=== PATIENT | female | born 1960 | race Caucasian/White ===

== ENCOUNTER 2019-04-03 16:00 | Inpatient (IN) | payer MEDICARE ==
[~2019-04-03] VITALS: Ht 157.5 cm; Wt 41.3 kg
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
--- NOTE | 2019-04-03 17:13 | RAD ---
PORTABLE CHEST 1V History: Altered mental status. Comparison: None. Findings: No consolidation or pleural effusion. Normal heart size. Right medial basilar calcified granuloma. Calcified right hilar lymph nodes. Impression: 1. No acute cardiopulmonary process. 2. Prior granulomatous disease. Electronically signed by: Brandon Figueroa DO (04/03/2019 5:11 PM) [id number]
[2019-04-03 17:20] LABS: BILIRUBIN,URINE NEG (NEG); CLARITY,URINE CLEAR; COLOR,URINE STRAW; GLUCOSE,URINE 100 mg/dL (NEG)
[2019-04-03 17:21] LABS: NITRITE,URINE NEG (NEG); UROBILINOGEN,URINE 0.2 mg/dL (0.2 mg/dL)
[2019-04-03 17:27] LABS: BACTERIA,URINE FEW /HPF (0-FEW); BARBITURATES NEG (NEG); BENZODIAZEPINES NEG (NEG); CANNABINOIDS NEG (NEG); COCAINE POS (NEG); METHADONE NEG (NEG); OPIATES NEG (NEG); PHENCYCLIDINE NEG (NEG); RBC,URINE RARE /HPF (0-2); SQUAMOUS EPITHELIAL CELL,UR FEW /LPF; WBC,URINE OCC /HPF (0-4)
[2019-04-03 17:29] LABS: AMPHETAMINE/METHAMPHETAMINE NEG (NEG)
[2019-04-03 17:31] LABS: BASO % 0 % (0-3); EOS # 0.1 x10^3/uL (0.0-0.7); EOS % 1 % (0-3); HEMATOCRIT 51.7 % (36.0-47.0); HEMOGLOBIN 17.3 g/dL (12.0-15.5); LYMPH # 1.9 x10^3/uL (1.0-4.8); LYMPH % 23 % (24-48); MEAN CORPUSCULAR HEMOGLOBIN 32 pg (25-35); MEAN CORPUSCULAR HGB CONC 34 g/dL (31-37); MEAN CORPUSCULAR VOLUME 96 fL (79-100); MONO # 0.7 x10^3/uL (0.0-1.1); MONO % 8 % (0-9); NEUT # 5.5 x10^3uL (1.8-7.7); NEUT % 68 % (31-73); PLATELET COUNT 220 x10^3/uL (140-400); RED BLOOD COUNT 5.38 x10^6/uL (3.50-5.40); RED CELL DISTRIBUTION WIDTH 14.8 % (11.5-14.5); WHITE BLOOD COUNT 8.2 x10^3/uL (4.0-11.0)
--- NOTE | 2019-04-03 18:06 | RAD ---
Exam: CT head INDICATION: Altered mental status TECHNIQUE: Sequential axial images through the head were obtained without the administration of IV contrast. Comparisons: None FINDINGS: No focal parenchymal lesion or hemorrhage is identified. There is no midline shift or sulcal effacement. No acute vascular territory infarction is identified. Paalcio-white distinction is preserved. The ventricular system is within normal limits without compression hydrocephalus. The basal cisterns are well maintained. The visualized portions of the paranasal sinuses and mastoid air cells are well-pneumatized. No acute fractures. IMPRESSION: No acute intracranial abnormality. Exposure: One or more of the following in the visualized dose reduction techniques were utilized for this examination: 1. Automated exposure control 2. Adjustment of the MA and/or KV according to patient size Use of iterative of reconstructive technique Electronically signed by: Emmett Esqueda MD (04/03/2019 6:03 PM) [facility]
--- NOTE | 2019-04-03 18:25 | EKG ---
[address] [address] Test Date: 2019-04-03 Test Time: 16:46:49 Pat Name: CINDA WALDEN Department: Room: Gender: F Banquet Lead: : 1960 Requested By: KHALIDA CEVALLOS Order Number: [id number] Reading MD: Flaquito Torres Measurements Intervals [place] Rate: 80 P: 90 DC: 128 QRS: 79 QRSD: 84 T: 63 QT: 400 QTc: 465 Interpretive Statements SINUS RHYTHM NONSPECIFIC ST-T WAVE CHANGES. Electronically Signed On 04-06-2019 10:14:09 CDT by Flaquito Torres
[2019-04-03 18:47] LABS: ALBUMIN 3.8 g/dL (3.4-5.0); ALBUMIN/GLOBULIN RATIO 0.9 (1.0-1.7); CALCIUM 9.3 mg/dL (8.5-10.1); CREATININE 0.9 mg/dL (0.6-1.0); GFR 64.3; MAGNESIUM 2.3 mg/dL (1.8-2.4); TOTAL BILIRUBIN 0.4 mg/dL (0.2-1.0); TOTAL PROTEIN 7.9 g/dL (6.4-8.2)
[2019-04-03] MEDS ORDERED: POTASSIUM CHLORIDE 20 MEQ TABLET.ER. PO ONE (19:00)
[2019-04-03] MEDS ORDERED: NICOTINE 21MG PATCH. TD ONE ×2 (19:52→20:30)
[2019-04-03 20:30] VITALS: BP 190/85
[2019-04-03] MEDS ORDERED: ONDANSETRON PF 4 MG/2 ML VIAL. IV PRN (21:15)
[2019-04-03] MEDS: HALOPERIDOL LACT 5 MG/ML VIAL. IM PRN (21:43)
[2019-04-03 23:40] VITALS: BP 145/74
[2019-04-04 06:36] VITALS: BP 136/75
[2019-04-04 08:03] LABS: HEMATOCRIT 49.4 % (36.0-47.0); HEMOGLOBIN 16.5 g/dL (12.0-15.5); RED BLOOD COUNT 5.15 x10^6/uL (3.50-5.40); WHITE BLOOD COUNT 6.5 x10^3/uL (4.0-11.0)
[2019-04-04 08:11] LABS: CALCIUM 8.9 mg/dL (8.5-10.1); CREATININE 0.8 mg/dL (0.6-1.0); GFR 73.7; POTASSIUM 4.3 mmol/L (3.5-5.1)
[2019-04-04 11:08] VITALS: BP 144/80
[2019-04-04] MEDS: HALOPERIDOL LACT 5 MG/ML VIAL. IM PRN (11:09)
[2019-04-04 15:03] VITALS: BP 170/82
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
[2019-04-04 19:41] VITALS: BP 154/71
[2019-04-04 23:18] VITALS: BP 128/71
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
[2019-04-05 05:06] VITALS: BP 133/78
[2019-04-05] MEDS: HALOPERIDOL LACT 5 MG/ML VIAL. IM PRN (09:04)
[2019-04-05 11:00] VITALS: BP 171/81
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
== END 2019-04-05 16:51 | disposition home or self-care (01) | DRG 641 ==
LOC: ER 16:00 → EEVIPCON 16:00 → 1 SOUTH 18:50
PROVIDERS: ADMIT Internal Medicine; ATTEND Internal Medicine
DX: E87.6 Hypokalemia (principal); F14.10 Cocaine abuse, uncomplicated; F03.90 Unspecified dementia, unspecified severity, without behavioral disturbance, psychotic disturbance, mood disturbance, and anxiety; D64.9 Anemia, unspecified; Z87.891 Personal history of nicotine dependence; Z79.899 Other long term (current) drug therapy
CPT/HCPCS: 36415; 70450; 71045; 80048; 80053; 80307; 81001; 83735; 85025; 85027; 93005; J1630; 99285-25

== ENCOUNTER 2019-10-08 13:43 | Inpatient (IN) | payer MEDICARE ==
[~2019-10-08] VITALS: Ht 157.5 cm; Wt 62.6 kg
[2019-10-08 14:29] LABS: BASO # 0.1 x10^3/uL (0.0-0.2); BASO % 1 % (0-3); EOS # 0.1 x10^3/uL (0.0-0.7); EOS % 1 % (0-3); HEMOGLOBIN 15.7 g/dL (12.0-15.5); LYMPH # 2.9 x10^3/uL (1.0-4.8); LYMPH % 40 % (24-48); MEAN CORPUSCULAR HEMOGLOBIN 31 pg (25-35); MEAN CORPUSCULAR HGB CONC 33 g/dL (31-37); MEAN CORPUSCULAR VOLUME 94 fL (79-100); MONO # 0.7 x10^3/uL (0.0-1.1); MONO % 10 % (0-9); NEUT # 3.6 x10^3uL (1.8-7.7); NEUT % 49 % (31-73); PLATELET COUNT 338 x10^3/uL (140-400); RED BLOOD COUNT 5.11 x10^6/uL (3.50-5.40); RED CELL DISTRIBUTION WIDTH 14.2 % (11.5-14.5); WHITE BLOOD COUNT 7.4 x10^3/uL (4.0-11.0)
[2019-10-08 14:34] LABS: CALCIUM 9.5 mg/dL (8.5-10.1); CREATININE 0.9 mg/dL (0.6-1.0); GFR 64.3; POTASSIUM 4.1 mmol/L (3.5-5.1)
[2019-10-08 14:42] LABS: ALBUMIN 3.8 g/dL (3.4-5.0); ALBUMIN/GLOBULIN RATIO 0.9 (1.0-1.7); MAGNESIUM 2.2 mg/dL (1.8-2.4); TOTAL BILIRUBIN 0.3 mg/dL (0.2-1.0)
--- NOTE | 2019-10-08 14:51 | PHYS DOC ---
Past History Past Medical History: Dementia Past Surgical History: Other Smoking: Cigarettes Alcohol Use: Rarely Adult General Chief Complaint Chief Complaint: PSYCH EVALUATION HPI HPI Patient is a 59-year-old female who presents for medical [facility]. Patient reportedly has behavioral disturbance. Patient not willing to answer any questions the emergency room. She is refusing entire examination.[] Review of Systems Review of Systems Constitutional: No reported fever or chills [] Respiratory: No reported shortness of breath [] Cardiovascular: No additional information not addressed in HPI [] GI: No reported vomiting or diarrhea [] Neurologic: No reported headache, focal weakness or sensory changes [] Unable to fully assess review of systems as patient is refusing to answer any questions. Allergies Allergies Allergies Coded Allergies Type Severity Reaction Last Updated Verified No Known Drug Allergies 04/03/19 No Physical Exam Physical Exam Constitutional: Well developed, well nourished, no acute distress, non-toxic appearance. [] HENT: Normocephalic, atraumatic. [] Lungs & Thorax: No respiratory distress apparent[] Neurologic: Awake and alert with no obvious no focal deficits noted. [] Psychologic: Patient agitated and hostile towards staff. [] Unable to complete physical examination as patient is unwilling to allow physician exam. Current Patient Data Vital Signs Vital Signs Date Time Temp Pulse Resp B/P (MAP) Pulse Ox O2 Delivery O2 Flow Rate FiO2 10/08/19 14:05 66 22 149/114 (126) 94 Lab Results Laboratory Tests Test 10/08/19 14:02 White Blood Count 7.4 x10^3/uL (4.0-11.0) Red Blood Count 5.11 x10^6/uL (3.50-5.40) Hemoglobin 15.7 g/dL (12.0-15.5) H Hematocrit 48.0 % (36.0-47.0) H Mean Corpuscular Volume 94 fL (79-100) Mean Corpuscular Hemoglobin 31 pg (25-35) Mean Corpuscular Hemoglobin Concent 33 g/dL (31-37) Red Cell Distribution Width 14.2 % (11.5-14.5) Platelet Count 338 x10^3/uL (140-400) Neutrophils (%) (Auto) 49 % (31-73) Lymphocytes (%) (Auto) 40 % (24-48) Monocytes (%) (Auto) 10 % (0-9) H Eosinophils (%) (Auto) 1 % (0-3) Basophils (%) (Auto) 1 % (0-3) Neutrophils # (Auto) 3.6 x10^3uL (1.8-7.7) Lymphocytes # (Auto) 2.9 x10^3/uL (1.0-4.8) Monocytes # (Auto) 0.7 x10^3/uL (0.0-1.1) Eosinophils # (Auto) 0.1 x10^3/uL (0.0-0.7) Basophils # (Auto) 0.1 x10^3/uL (0.0-0.2) Sodium Level 147 mmol/L (136-145) H Potassium Level 4.1 mmol/L (3.5-5.1) Chloride Level 108 mmol/L (98-107) H Carbon Dioxide Level 23 mmol/L (21-32) Anion Gap 16 (6-14) H Blood Urea Nitrogen 12 mg/dL (7-20) Creatinine 0.9 mg/dL (0.6-1.0) Estimated GFR (Cockcroft-Gault) 64.3 BUN/Creatinine Ratio 13 (6-20) Glucose Level 111 mg/dL (70-99) H Calcium Level 9.5 mg/dL (8.5-10.1) Magnesium Level 2.2 mg/dL (1.8-2.4) Total Bilirubin 0.3 mg/dL (0.2-1.0) Aspartate Amino Transferase (AST) 16 U/L (15-37) Alanine Aminotransferase (ALT) 20 U/L (14-59) Alkaline Phosphatase 95 U/L (46-116) Total Protein 8.0 g/dL (6.4-8.2) Albumin 3.8 g/dL (3.4-5.0) Albumin/Globulin Ratio 0.9 (1.0-1.7) L Ethyl Alcohol Level < 10 mg/dL (0-10) EKG EKG [] Radiology/Procedures Radiology/Procedures [] Course & Med Decision Making Course & Med Decision Making Pertinent Labs and Imaging studies reviewed. (See chart for details) [] Dragon Disclaimer Dragon Disclaimer This electronic medical record was generated, in whole or in part, using a voice recognition dictation system. Departure Departure: Impression: Primary Impression: Behavior disturbance Disposition: ADMITTED INPATIENT Admitting Physician: Other (Dr. Flores) Condition: STABLE Referrals: FARA FINK MD (PCP) Scripts No Active Prescriptions or Reported Meds LEANDRA SWARTZ Jr. DO Oct 08, 2019 14:51
[2019-10-08] MEDS ORDERED: CALC500T31 PO (15:29)
[2019-10-08] MEDS ORDERED: THIA100T22 PO (15:29)
[2019-10-08] MEDS ORDERED: NICO2GUM BC (15:29)
[2019-10-08] MEDS ORDERED: QUET25TA5 PO ×2 (15:29)
[2019-10-08] MEDS ORDERED: ACET325T21 PO (15:29)
[2019-10-08] MEDS ORDERED: FOLI20CA PO (15:29)
[2019-10-08] MEDS ORDERED: AMLO5TAB10 PO (15:29)
[2019-10-08] MEDS ORDERED: DIVA500T17 PO (15:29)
[2019-10-08] MEDS ORDERED: MELA3TAB43 PO (15:29)
[2019-10-08] MEDS ORDERED: MULT-503 PO (15:29)
[2019-10-08] MEDS ORDERED: POLY2500 PO (15:29)
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
[2019-10-08] MEDS ORDERED: MAGNESIUM HYDROXIDE 2,400 MG/30 ML ORAL.SUSP. PO PRN (17:30)
[2019-10-08] MEDS ORDERED: METHYL SALICYLATE/MENTHOL TOPICAL OINTMENT 57GM TUBE. TP PRN (17:30)
[2019-10-08] MEDS ORDERED: ACETAMINOPHEN 325 MG TABLET PO PRN ×2 (17:30→19:30)
[2019-10-08] MEDS ORDERED: MAG HYDROX/AL HYDROX/SIMETH 30 ML ORAL.SUSP PO PRN (17:30)
[2019-10-08 17:57] VITALS: BP 121/83
[2019-10-08 18:21] LABS: VAL ACID 70 mcg/mL (50-100)
[2019-10-08] MEDS ORDERED: CALCIUM CARBONATE 500 MG TABLET PO PRN (19:30)
[2019-10-08] MEDS ORDERED: NICOTINE POLACRILEX GUM 2 MG GUM. BC PRN (19:30)
[2019-10-08] MEDS: MELATONIN 3 MG TABLET PO SCH (20:02)
[2019-10-08] MEDS: QUEtiapine 25 MG TABLET. PO SCH (20:02)
[2019-10-08] MEDS: DIVALPROEX SODIUM 250 MG TABLET.DR. PO SCH (20:03)
--- NOTE | 2019-10-08 21:19 | NUR ---
Pt walking in hallway at shift change. Pt exit seeking, confused, and disorganized. Pt states "I'm leaving. I'm not staying here. That's my stuff and they're not going to take it." Pt cooperative with assessment this evening although has refused skin assessment thus far and pt was compliant with HS medications administered whole. Pt currently walking in day room, stating that she is leaving and she is not staying here tonight.
--- NOTE | 2019-10-08 21:28 | PDOC ---
Exam Note: Saeed Note: Please also refer to the separate dictated note~for this date of service dictated separately. Discussed the patient with Nursing staff reviewed the chart.~Reviewed interim history and current functioning. Reviewed vital signs,~Labs/ Radiology~and current medications noted below. Continue current treatment with the changes noted in the dictated addendum note Assessment: Vital Signs/I&O: Vital Signs Date Time Temp Pulse Resp B/P (MAP) Pulse Ox O2 Delivery O2 Flow Rate FiO2 10/08/19 17:57 98.3 91 20 121/83 (96) 97 Room Air Labs: Laboratory Tests Test 10/08/19 14:02 White Blood Count 7.4 x10^3/uL (4.0-11.0) Red Blood Count 5.11 x10^6/uL (3.50-5.40) Hemoglobin 15.7 g/dL (12.0-15.5) H Hematocrit 48.0 % (36.0-47.0) H Mean Corpuscular Volume 94 fL (79-100) Mean Corpuscular Hemoglobin 31 pg (25-35) Mean Corpuscular Hemoglobin Concent 33 g/dL (31-37) Red Cell Distribution Width 14.2 % (11.5-14.5) Platelet Count 338 x10^3/uL (140-400) Neutrophils (%) (Auto) 49 % (31-73) Lymphocytes (%) (Auto) 40 % (24-48) Monocytes (%) (Auto) 10 % (0-9) H Eosinophils (%) (Auto) 1 % (0-3) Basophils (%) (Auto) 1 % (0-3) Neutrophils # (Auto) 3.6 x10^3uL (1.8-7.7) Lymphocytes # (Auto) 2.9 x10^3/uL (1.0-4.8) Monocytes # (Auto) 0.7 x10^3/uL (0.0-1.1) Eosinophils # (Auto) 0.1 x10^3/uL (0.0-0.7) Basophils # (Auto) 0.1 x10^3/uL (0.0-0.2) Sodium Level 147 mmol/L (136-145) H Potassium Level 4.1 mmol/L (3.5-5.1) Chloride Level 108 mmol/L (98-107) H Carbon Dioxide Level 23 mmol/L (21-32) Anion Gap 16 (6-14) H Blood Urea Nitrogen 12 mg/dL (7-20) Creatinine 0.9 mg/dL (0.6-1.0) Estimated GFR (Cockcroft-Gault) 64.3 BUN/Creatinine Ratio 13 (6-20) Glucose Level 111 mg/dL (70-99) H Calcium Level 9.5 mg/dL (8.5-10.1) Magnesium Level 2.2 mg/dL (1.8-2.4) Total Bilirubin 0.3 mg/dL (0.2-1.0) Aspartate Amino Transferase (AST) 16 U/L (15-37) Alanine Aminotransferase (ALT) 20 U/L (14-59) Alkaline Phosphatase 95 U/L (46-116) Total Protein 8.0 g/dL (6.4-8.2) Albumin 3.8 g/dL (3.4-5.0) Albumin/Globulin Ratio 0.9 (1.0-1.7) L Valproic Acid Level 70 mcg/mL (50-100) Valproic Acid Last Dose Date 10/07/19 Valproic Acid Last Dose Time 2100 Ethyl Alcohol Level < 10 mg/dL (0-10) Current Medications: Meds: Current Medications Medications (Trade) Dose Ordered Sig/Tati Route PRN Reason Start Time Stop Time Status Last Admin Dose Admin Divalproex Sodium (Depakote) 250 mg TID PO 10/08/19 21:00 10/08/19 20:03 Quetiapine Fumarate (SEROquel) 75 mg QHS PO 10/08/19 21:00 10/08/19 20:02 Melatonin (Melatonin) 3 mg QHS PO 10/08/19 21:00 10/08/19 20:02 I have reviewed the current psychotropics carefully including drug interactions. Risk benefit ratio favors no change other than as noted in my dictated progress note. Diagnosis: Problems: (1) Cocaine abuse ASHLIE CINTRON MD Oct 08, 2019 21:27
--- NOTE | 2019-10-08 22:09 | NUR ---
Pt agitated, exit seeking, door checking and swearing at staff. Attempts at re-direction by staff unsuccessful. PRN Zydis administered hidden in apple juice at this time.
[2019-10-08 23:07] LABS: THYROXINE 5.9 ug/dL (4.5-12.0)
[2019-10-08 23:13] LABS: BARBITURATES NEG (NEG); BENZODIAZEPINES NEG (NEG); CANNABINOIDS NEG (NEG); COCAINE NEG (NEG); METHADONE NEG (NEG); OPIATES NEG (NEG); PHENCYCLIDINE NEG (NEG)
[2019-10-08 23:14] LABS: AMPHETAMINE/METHAMPHETAMINE NEG (NEG)
[2019-10-08 23:58] LABS: BACTERIA,URINE 0 /HPF (0-FEW); BILIRUBIN,URINE NEG (NEG); CLARITY,URINE CLEAR; COLOR,URINE YELLOW; GLUCOSE,URINE NEG (NEG); NITRITE,URINE NEG (NEG); RBC,URINE 0 /HPF (0-2); SQUAMOUS EPITHELIAL CELL,UR OCC /LPF; UROBILINOGEN,URINE 0.2 mg/dL (0.2 mg/dL); WBC,URINE OCC /HPF (0-4)
[2019-10-09 00:06] LABS: HEMOGLOBIN A1C 5.3 % (4.8-5.6)
--- NOTE | 2019-10-09 03:17 | NUR ---
Patient has been provided with Practical Counseling for tobacco cessation. It included a face to face interaction and the following was discussed: Recognizing danger situations, Developing coping skills,Basic cessation information. Will follow for discharge needs and discharge planning.
[2019-10-09 05:56] VITALS: BP 106/65
[2019-10-09] MEDS: MULTIVITAMIN with MINERAL TABLET. PO SCH (09:51)
[2019-10-09] MEDS: POLYETHYLENE GLYCOL 3350 17 GM PACKET. PO SCH (09:51)
[2019-10-09] MEDS: QUEtiapine 25 MG TABLET. PO SCH ×2 (09:52→20:03)
[2019-10-09] MEDS: FOLIC ACID 1 MG TABLET PO SCH (09:52)
[2019-10-09] MEDS: THIAMINE 100 MG TABLET. PO SCH (09:52)
[2019-10-09] MEDS: DIVALPROEX SODIUM 250 MG TABLET.DR. PO SCH ×3 (09:52→20:02)
[2019-10-09] MEDS: amLODIPine BESYLATE 5 MG TABLET PO SCH (09:52)
--- NOTE | 2019-10-09 12:52 | NUR ---
Nursing note: Pt in her room for morning meds and assessment. Pt was very resistive with taking her meds, but was eventually compliant in taking them whole after much encouragement. Pt continues to state "I'm leaving. I can't stay here" and swear at staff. Pt has been exit seeking all morning and was unable to be redirected. PRN was given at that time. She is currently walking around the unit. Will continue to monitor.
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
[2019-10-09 14:40] LABS: THYROID STIM HORMONE (TSH) 4.167 uIU/mL (0.358-3.740)
[2019-10-09 16:29] VITALS: BP 117/80
[2019-10-09] MEDS: MELATONIN 3 MG TABLET PO SCH (20:02)
--- NOTE | 2019-10-09 21:23 | PDOC ---
Exam Note: Saeed Note: Please also refer to the separate dictated note~for this date of service dictated separately.~Patient seen individually. Discussed the patient with Nursing staff reviewed the chart.~Reviewed interim history and current functioning. Reviewed vital signs,~Labs/ Radiology~and current medications noted below. Continue current treatment with the changes noted in the dictated addendum note Assessment: Vital Signs/I&O: Vital Signs Date Time Temp Pulse Resp B/P (MAP) Pulse Ox O2 Delivery O2 Flow Rate FiO2 10/09/19 16:29 97.6 77 16 117/80 (92) 96 10/08/19 17:57 Room Air I & O 10/08/19 10/08/19 10/09/19 15:00 23:00 07:00 Intake Total 0 ml 360 ml Balance 0 ml 360 ml Labs: Laboratory Tests Test 10/08/19 22:55 10/09/19 20:14 Urine Collection Type Unknown Urine Color Yellow Urine Clarity Clear Urine pH 6.0 Urine Specific [place] 1.020 Urine Protein Neg (NEG-TRACE) Urine Glucose (UA) Neg mg/dL (NEG) Urine Ketones (Stick) Neg mg/dL (NEG) Urine Blood Neg (NEG) Urine Nitrite Neg (NEG) Urine Bilirubin Neg (NEG) Urine Urobilinogen Dipstick 0.2 mg/dL (0.2 mg/dL) Urine Leukocyte Esterase Neg (NEG) Urine RBC 0 /HPF (0-2) Urine WBC Occ /HPF (0-4) Urine Squamous Epithelial Cells Occ /LPF Urine Bacteria 0 /HPF (0-FEW) Urine Mucus Slight /LPF Urine Opiates Screen Neg (NEG) Urine Methadone Screen Neg (NEG) Urine Barbiturates Neg (NEG) Urine Phencyclidine Screen Neg (NEG) Urine Amphetamine/Methamphetamine Neg (NEG) Urine Benzodiazepines Screen Neg (NEG) Urine Cocaine Screen Neg (NEG) Urine Cannabinoids Screen Neg (NEG) Urine Ethyl Alcohol Neg (NEG) Glucose (Fingerstick) 110 mg/dL (70-99) H Current Medications: Meds: Current Medications Medications (Trade) Dose Ordered Sig/Tati Route PRN Reason Start Time Stop Time Status Last Admin Dose Admin Amlodipine Besylate (Norvasc) 5 mg DAILY PO 10/09/19 09:00 10/09/19 09:52 Thiamine HCl (Vitamin B-1) 100 mg DAILY PO 10/09/19 09:00 10/09/19 09:52 Folic Acid (Folic Acid) 1 mg DAILY PO 10/09/19 09:00 10/09/19 09:52 Multivitamins/ Calcium (Thera-M Plus) 1 tab DAILY PO 10/09/19 09:00 10/09/19 09:51 Polyethylene Glycol (miraLAX) 17 gm DAILY PO 10/09/19 09:00 10/09/19 09:51 Quetiapine Fumarate (SEROquel) 25 mg DAILY PO 10/09/19 09:00 10/09/19 09:52 I have reviewed the current psychotropics carefully including drug interactions. Risk benefit ratio favors no change other than as noted in my dictated progress note. Diagnosis: Problems: (1) Anxiety disorder (2) Impulse control disorder (3) Other psychoactive substance abuse with psychoactive substance-induced persisting dementia (4) Dementia in Alzheimer's disease with delusions (5) Cocaine abuse (6) Dementia in Alzheimer's disease with depression (7) Dementia, vascular, with delusions (8) Dementia, vascular, with depression ASHLIE CINTRON MD Oct 09, 2019 21:23
--- NOTE | 2019-10-09 21:46 | NUR ---
Pt walking in day room at shift change. Pt interactive with staff, irritable at times, talking to herself. Pt cooperative with assessment and compliant with medications administered whole. Pt consumed multiple snacks and a boxed lunch this evening. Pt currently walking around in the day room talking with staff and another pt.
[2019-10-09] MEDS: traZODone 50 MG TABLET. PO SCH (22:41)
[2019-10-09] MEDS ORDERED: traZODone 50 MG TABLET. PO SCH (22:45)
[2019-10-09] MEDS ORDERED: traZODone 50 MG TABLET. PO PRN (22:45)
[2019-10-10 05:48] VITALS: BP 111/72
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
[2019-10-10] MEDS ORDERED: CHOLECALCIFEROL (VITAMIN D3) 50,000 UNIT CAPSULE PO SCH (09:00)
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
[2019-10-10] MEDS: MULTIVITAMIN with MINERAL TABLET. PO SCH (09:20)
[2019-10-10] MEDS: DIVALPROEX SODIUM 250 MG TABLET.DR. PO SCH ×3 (09:20→20:25)
[2019-10-10] MEDS: POLYETHYLENE GLYCOL 3350 17 GM PACKET. PO SCH (09:20)
[2019-10-10] MEDS: FOLIC ACID 1 MG TABLET PO SCH (09:20)
[2019-10-10] MEDS: QUEtiapine 25 MG TABLET. PO SCH (09:21)
[2019-10-10] MEDS: SERTRALINE 25 MG TABLET. PO SCH (09:21)
[2019-10-10] MEDS: amLODIPine BESYLATE 5 MG TABLET PO SCH (09:21)
[2019-10-10] MEDS: THIAMINE 100 MG TABLET. PO SCH (09:21)
--- NOTE | 2019-10-10 09:57 | NUR ---
Nursing note: Pt in day room for meds. She was resistive with her meds, saying that she "does not need them and does not care what anyone says". Pt was eventually compliant in taking her meds whole, but became combative when attempting to assess her. Pt's right hand is cyanotic and cold. O2 reading is 85% but is asymptomatic and pt continues to refuse to be assessed. Pt continues to be verbally aggressive towards staff, wandering the unit, and exit seeking. Will continue to monitor.
[2019-10-10 16:15] VITALS: BP 123/67
[2019-10-10] MEDS ORDERED: QUEtiapine 25 MG TABLET. PO SCH (18:00)
[2019-10-10] MEDS: MELATONIN 3 MG TABLET PO SCH (20:24)
[2019-10-10] MEDS: traZODone 50 MG TABLET. PO SCH (20:25)
[2019-10-10] MEDS: QUEtiapine 50 MG TABLET. PO SCH (20:26)
--- NOTE | 2019-10-10 21:23 | NUR ---
Pt wandering in the hallway at shift change. Pt suspicious, confused, and disorganized but cooperative with assessment and compliant with medications administered whole. No agitation or aggression noted thus far this evening.
--- NOTE | 2019-10-10 21:23 | PDOC ---
Exam Note: Saeed Note: Please also refer to the separate dictated note~for this date of service dictated separately.~Patient seen individually. Discussed the patient with Nursing staff reviewed the chart.~Reviewed interim history and current functioning. Reviewed vital signs,~Labs/ Radiology~and current medications noted below. Continue current treatment with the changes noted in the dictated addendum note Assessment: Vital Signs/I&O: Vital Signs Date Time Temp Pulse Resp B/P (MAP) Pulse Ox O2 Delivery O2 Flow Rate FiO2 10/10/19 16:15 98.0 60 18 123/67 (85) 97 10/08/19 17:57 Room Air I & O 10/09/19 10/09/19 10/10/19 15:00 23:00 07:00 Intake Total 720 ml 480 ml 360 ml Balance 720 ml 480 ml 360 ml Labs: Laboratory Tests Test 10/10/19 07:13 Glucose (Fingerstick) 97 mg/dL (70-99) Current Medications: Meds: Current Medications Medications (Trade) Dose Ordered Sig/Tati Route PRN Reason Start Time Stop Time Status Last Admin Dose Admin Sertraline HCl (Zoloft) 25 mg DAILY PO 10/10/19 09:00 10/12/19 21:00 10/10/19 09:21 Vitamin D (Vitamin D3) 50,000 unit WEEKLY PO 10/10/19 09:00 10/10/19 09:21 Trazodone HCl (Desyrel) 50 mg QHS PO 10/09/19 23:00 10/10/19 20:25 Quetiapine Fumarate (SEROquel) 50 mg QHS PO 10/10/19 21:00 10/10/19 20:26 I have reviewed the current psychotropics carefully including drug interactions. Risk benefit ratio favors no change other than as noted in my dictated progress note. Diagnosis: Problems: (1) Anxiety disorder (2) Impulse control disorder (3) Other psychoactive substance abuse with psychoactive substance-induced persisting dementia (4) Dementia in Alzheimer's disease with delusions (5) Cocaine abuse (6) Dementia in Alzheimer's disease with depression (7) Dementia, vascular, with delusions (8) Dementia, vascular, with depression ASHLIE CINTRON MD Oct 10, 2019 21:23
--- NOTE | 2019-10-11 00:44 | PN ---
DATE: 10/09/2019 PSYCHIATRIC PROGRESS NOTE This late entry 10/09/2019 covers elements not covered in my initial note. SUBJECTIVE: I met with the patient evening of 10/09/2019. Per JACKSON Diaz, the patient slept 5 hours previous night. She slept till 10:00 a.m. has been anxious, restless, exit seeking, confused. She has been swearing at staff, refusing medications, took it later, received Zyprexa Zydis p.r.n. REVIEW OF SYSTEMS: No CV, , pulmonary, eye, ENT system symptoms on review. Reliability poor. MENTAL STATUS EXAM: Oriented to herself. Insight, judgment, recent and remote memory, attention, concentration, fund of knowledge poor, consistent with her diagnoses. IMPRESSION: Major neurocognitive disorder, multifactorial, probably vascular Alzheimer secondary to past substance abuse including cocaine with delusion, depression, behavioral disturbance; anxiety disorder, unspecified; impulse control disorder, unspecified. PLAN: We will go ahead and start the patient on Zoloft 25 mg a day, increasing in 3 days to 50 mg a day. She is on Depakote 250 mg t.i.d. Valproic acid level is therapeutic at 70, melatonin 3 mg at bedtime, Seroquel 25 mg daily, 75 mg at bedtime, Zyprexa p.r.n. Reviewed risks/benefit ratio. Adjust further as clinically indicated. ASHLIE CINTRON MD DR: JOIE/glenn JOB#: [id number] / [id number]
[2019-10-11] MEDS: FOLIC ACID 1 MG TABLET PO SCH (08:21)
[2019-10-11] MEDS: MULTIVITAMIN with MINERAL TABLET. PO SCH (08:21)
[2019-10-11] MEDS: SERTRALINE 25 MG TABLET. PO SCH (08:21)
[2019-10-11] MEDS: THIAMINE 100 MG TABLET. PO SCH (08:21)
[2019-10-11] MEDS: amLODIPine BESYLATE 5 MG TABLET PO SCH (08:21)
[2019-10-11] MEDS: DIVALPROEX SODIUM 250 MG TABLET.DR. PO SCH ×3 (08:21→20:36)
[2019-10-11] MEDS: POLYETHYLENE GLYCOL 3350 17 GM PACKET. PO SCH (08:22)
[2019-10-11] MEDS: QUEtiapine 25 MG TABLET. PO SCH ×3 (09:26→16:56)
--- NOTE | 2019-10-11 10:54 | NUR ---
Pt is alert, oriented to self. Wandering around. Would not sit to eat breakfast long. Pt paranoid about multiple people giving her medications and assessing her lung sounds. Believes she is going to leave today. Mutters comments under her breath. Patient is suspicious of staff activity, makes comments, "do you even know what you are doing?" Patient was compliant with medications as patient was told taking her meds was the first step to get out of here. WCTM.
--- NOTE | 2019-10-11 11:00 | NUR ---
WEEKLY ACTIVITY THERAPY NOTE Date of Admission: 10/08/2019 Date of AT Assessment: TBD Goal aimed: TBD Initial goal: TBD Weekly progress towards goal: NA Group participation level: 1 mod Weekly highlights: balloon bop on Tuesday Behaviors observed: wandering in the day room, talks to self, difficult to follow speech at times, time in secured hallway Plan: meet/assess Pt. Beneficial adaptations:
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
--- NOTE | 2019-10-11 14:45 | NUR ---
Patient refusing to go with staff down for CT. Explained that the doctor wanted to scan her head, but patient refusing.
--- NOTE | 2019-10-11 15:30 | NUR ---
Activity Therapy Assessment Completed based on observation, notes, attempted interview, and discussion with RN and SW. Pt. was in the day room, wandering, when therapist approached. Pt. stated her day was 'horrible. I hate it here. I am going home. I am leaving'. Therapist asked where home was and Pt. pointed out the window, stating 'Just around the corner'. Therapist asked if Pt. would like to talk somewhere quieter. Pt. squinted her eyes and asked 'where?' Therapist offered to go to the group room to meet Pt. social media executive. Pt. remained suspicious and stated 'Who?' Therapist responded 'Her name is Helga. Have you met her yet?' Pt. shook her head and stated 'I don't like people like that'. Therapist asked 'People like who?' to which Pt. responded 'I don't like Black people'. Therapist responded, 'That's too bad. Hegla is working hard to help you get home safe.' Pt. asked 'She is trying to get me home?' and therapist stated yes that is the social media executive's job and that Helga will come see Pt. later. Pt. nodded her head. Therapist attempt to continue assessment but Pt. wandered away, muttering to herself and seemed unwilling to speak further. This interaction was then reported to Recruiting Intern. SW shared that Pt. family is not involved in Pt. care and Pt. has a legal guardian named Piper. SW shared that Pt. sobriety is recent, as in the last few years, and we do not have much in terms of her background. Pt. is from a intermediate card tender care facility in [place] and she will likely return there at discharge. Pt. ambulates independently but needs reminders and support for all ADLs. Pt. currently in a onesie due to inappropriate disrobing and scratching of self. Pt. wanders most of the time, frequently door checking and exit seeking, suspicious of staff, and resistant to meds and cares. Pt. often around group and will engage with prompting but has difficulty with cognitive tasks, such as differentiating color or naming objects that start with specific letters. Pt. responds best to gross motor activities, such as rolling dice or bopping a balloon. Pt. tends to talk to herself and speaks in a mutter or low tone but does respond to people addressing her most of the time. Pt. conversations are short and vary in lucidity. Initial goal aimed to increase engagement and socialization: Pt. will participate in at least one Activity Therapy group or individual session moderately before discharge. Addendum: 10/18/19 at 1222 by ANDREW REYES ACT Goal changed 10/18/2019: Pt. will participate in at least least one Activity Therapy group per day
--- NOTE | 2019-10-11 15:45 | NUR ---
SW and the activity therapist were going to complete assessment together. The activity therapist went to get pt to see if she'd be willing to meet with her and the SW. Pt questioned who her SW was and it was reported that her SW was Helga. Pt shook her head no and stated that "I don't like black people". The activity therapist explained that SW would be working on getting pt discharged once she leave the hospital and pt stated "her job is to help me get home". When that was confirmed pt said "oh" but still was not willing to complete the assessment. SW noted with the activity therapist that pt and SW had a conversation in passing with pt this morning in the hallway. Pt not only greeted SW and asked how she was, later that morning, pt commented on another pt "not knowing what was going on" and joked with staff that "most people here are just crazy". SW will try at another time to gather information and complete PSA, hopefully with full cooperation from pt.
[2019-10-11 15:53] VITALS: BP 143/64
--- NOTE | 2019-10-11 18:01 | NUR ---
Attempted again to take patient to CT for CT head, pt refusing. Dr Flores aware.
[2019-10-11] MEDS: QUEtiapine 50 MG TABLET. PO SCH (20:36)
[2019-10-11] MEDS: MELATONIN 3 MG TABLET PO SCH (20:36)
[2019-10-11] MEDS: traZODone 50 MG TABLET. PO SCH (20:36)
--- NOTE | 2019-10-11 21:27 | PDOC ---
Exam Note: Saeed Note: Please also refer to the separate dictated note~for this date of service dictated separately.~Patient seen individually. Discussed the patient with Nursing staff reviewed the chart.~Reviewed interim history and current functioning. Reviewed vital signs,~Labs/ Radiology~and current medications noted below. Continue current treatment with the changes noted in the dictated addendum note Assessment: Vital Signs/I&O: Vital Signs Date Time Temp Pulse Resp B/P (MAP) Pulse Ox O2 Delivery O2 Flow Rate FiO2 10/11/19 15:53 97.8 70 18 143/64 (90) 98 10/08/19 17:57 Room Air I & O 10/10/19 10/10/19 10/11/19 15:00 23:00 07:00 Intake Total 1140 ml 240 ml 180 ml Balance 1140 ml 240 ml 180 ml Labs: Laboratory Tests Test 10/11/19 07:45 Glucose (Fingerstick) 101 mg/dL (70-99) H Current Medications: Meds: Current Medications Medications (Trade) Dose Ordered Sig/Tati Route PRN Reason Start Time Stop Time Status Last Admin Dose Admin Quetiapine Fumarate (SEROquel) 25 mg 0900,1300,1700 PO 10/11/19 09:00 10/11/19 16:56 I have reviewed the current psychotropics carefully including drug interactions. Risk benefit ratio favors no change other than as noted in my dictated progress note. Diagnosis: Problems: (1) Anxiety disorder (2) Impulse control disorder (3) Other psychoactive substance abuse with psychoactive substance-induced persisting dementia (4) Dementia in Alzheimer's disease with delusions (5) Cocaine abuse (6) Dementia in Alzheimer's disease with depression (7) Dementia, vascular, with delusions (8) Dementia, vascular, with depression ASHLIE CINTRON MD Oct 11, 2019 21:27
--- NOTE | 2019-10-12 01:47 | NUR ---
Nsg Note: Patient was in the day room at time of medication administration and assessments. Patient was irritable and kept touching some of the staff members. Patient was placed in W hallway to calm down. Patient calmed down when medications were given. Patient did not go to sleep until almost midnight. Patient kept wandering, very confused but was not "agitated" anymore. Will continue to monitor. No other notable behaviors at this time.
[2019-10-12 06:39] VITALS: BP 120/76
[2019-10-12] MEDS: FOLIC ACID 1 MG TABLET PO SCH (10:51)
[2019-10-12] MEDS: SERTRALINE 25 MG TABLET. PO SCH (10:51)
[2019-10-12] MEDS: THIAMINE 100 MG TABLET. PO SCH (10:51)
[2019-10-12] MEDS: amLODIPine BESYLATE 5 MG TABLET PO SCH (10:51)
[2019-10-12] MEDS: QUEtiapine 25 MG TABLET. PO SCH ×3 (10:51→17:00)
[2019-10-12] MEDS: POLYETHYLENE GLYCOL 3350 17 GM PACKET. PO SCH (10:51)
[2019-10-12] MEDS: DIVALPROEX SODIUM 250 MG TABLET.DR. PO SCH ×3 (10:51→20:50)
[2019-10-12] MEDS: MULTIVITAMIN with MINERAL TABLET. PO SCH (10:51)
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
[2019-10-12 16:33] VITALS: BP 104/67
[2019-10-12] MEDS: CHOLECALCIFEROL (VITAMIN D3) 50,000 UNIT CAPSULE PO SCH (17:15)
[2019-10-12] MEDS ORDERED: traZODone 50 MG TABLET. PO PRN (17:15)
--- NOTE | 2019-10-12 18:19 | NUR ---
Pt refused to get up for breakfast. Would not take am meds. Pt out for lunch. Gave meds and pt took them. Pt wanders. Usually just stares at others or replicates their conversation. Took supper meds with much encouragement. Says "no" to most questions.
--- NOTE | 2019-10-12 19:10 | PN ---
DATE: 10/10/2019 PSYCHIATRIC PROGRESS NOTE This late entry, 10/10, covers the elements not covered in my initial note. SUBJECTIVE: I met with the patient on the evening of 10/10. Per JACKSON Diaz, the patient slept 5-3/4 hours previous night. She has been restless, constantly wandering, exit seeking, confused. Earlier in the morning, she was somewhat cyanotic, but compliant with medications. Defer medical followup to Dr. Cassidy. She takes her meds with encouragement. REVIEW OF SYSTEMS: No CV, , pulmonary, eye, ENT systems symptoms on review. Reliability poor. MENTAL STATUS EXAM: Oriented to herself. Insight, judgment, recent and remote memory, attention, concentration, fund of knowledge poor, consistent with her diagnosis mentioned in my initial note. PLAN: No change from initial note, increase Seroquel from 25 mg a.m. and 75 at bedtime to 25 mg t.i.d. and 50 mg at bedtime. Maintain Depakote, melatonin and Zoloft at current dosage. Valproic acid level therapeutic at 70. MAN Riley CINTRON MD DR: JOIE/glenn JOB#: [id number] / [id number]
--- NOTE | 2019-10-12 19:13 | PN ---
DATE: 10/11/2019 PSYCHIATRIC PROGRESS NOTE This late entry, 10/11, covers the elements not covered in my initial note. SUBJECTIVE: I met with the patient on the evening of 10/11. The patient was staffed at a treatment team meeting in the morning. Appetite 75%, sleeping 5 hours. We will repeat a CT head. Last one done on 04/03/2019 shows no acute abnormality. She was noncompliant with the initial attempt at CT head, restless, confused. REVIEW OF SYSTEMS: No CV, , pulmonary, eye, ENT systems symptoms on review. Reliability poor. MENTAL STATUS EXAM: Oriented to herself. Insight, judgment, recent and remote memory, attention, concentration, fund of knowledge poor, consistent with her diagnosis mentioned in my initial note. IMPRESSION: Major neurocognitive disorder, multifactorial, possibly due to psychoactive substance abuse, vascular with delusion, depression, behavioral disturbances. Rest unchanged. PLAN: No change from initial note. Maintain Depakote level therapeutic at 70, melatonin, Seroquel has been adjusted trazodone and Zoloft, which is being increased. MAN Riley CINTRON MD DR: JOIE/glenn JOB#: [id number] / [id number]
[2019-10-12] MEDS: traZODone 50 MG TABLET. PO SCH (20:50)
[2019-10-12] MEDS: MELATONIN 3 MG TABLET PO SCH (20:50)
[2019-10-12] MEDS: QUEtiapine 50 MG TABLET. PO SCH (20:50)
--- NOTE | 2019-10-12 21:27 | PDOC ---
Exam Note: Saeed Note: Please also refer to the separate dictated note~for this date of service dictated separately.~Patient seen individually. Discussed the patient with Nursing staff reviewed the chart.~Reviewed interim history and current functioning. Reviewed vital signs,~Labs/ Radiology~and current medications noted below. Continue current treatment with the changes noted in the dictated addendum note Assessment: Vital Signs/I&O: Vital Signs Date Time Temp Pulse Resp B/P (MAP) Pulse Ox O2 Delivery O2 Flow Rate FiO2 10/12/19 16:33 97.8 100 20 104/67 (79) 99 10/08/19 17:57 Room Air I & O 10/11/19 10/11/19 10/12/19 15:00 23:00 07:00 Intake Total 720 ml 480 ml 240 ml Balance 720 ml 480 ml 240 ml Current Medications: Meds: Current Medications Medications (Trade) Dose Ordered Sig/Tati Route PRN Reason Start Time Stop Time Status Last Admin Dose Admin Vitamin D (Vitamin D3) 50,000 unit WEEKLY PO 10/12/19 17:15 10/12/19 17:15 Trazodone HCl (Desyrel) 75 mg QHS PO 10/12/19 21:00 10/12/19 20:50 I have reviewed the current psychotropics carefully including drug interactions. Risk benefit ratio favors no change other than as noted in my dictated progress note. 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
--- NOTE | 2019-10-13 02:02 | NUR ---
Nsg Note: Patient in W hallway at time of medication administration and assessments. Patient was refusing and being verbally aggressive towards RN ASB so instructed to move to W hallway. After about 5-10 mins of being in there, patient was told if she would take her medications she could leave the W hallway. Patient agreed and took medications and was let back into the day room as promised. Patient is very paranoid and suspicious. Gossiping about other patients. Patient wandering most of the night before sleeping around 1130pm-midnight. No other notable behaviors at this time.
[2019-10-13 06:40] VITALS: BP 132/76
[2019-10-13] MEDS: FOLIC ACID 1 MG TABLET PO SCH (08:05)
[2019-10-13] MEDS: MULTIVITAMIN with MINERAL TABLET. PO SCH (08:05)
[2019-10-13] MEDS: DIVALPROEX SODIUM 250 MG TABLET.DR. PO SCH ×3 (08:05→19:40)
[2019-10-13] MEDS: QUEtiapine 25 MG TABLET. PO SCH ×3 (08:05→17:00)
[2019-10-13] MEDS: POLYETHYLENE GLYCOL 3350 17 GM PACKET. PO SCH (08:05)
[2019-10-13] MEDS: amLODIPine BESYLATE 5 MG TABLET PO SCH (08:05)
[2019-10-13] MEDS: SERTRALINE 50 MG TABLET. PO SCH (08:06)
[2019-10-13] MEDS: THIAMINE 100 MG TABLET. PO SCH (08:06)
[2019-10-13 16:12] VITALS: BP 110/70
--- NOTE | 2019-10-13 16:23 | NUR ---
Pt up adl to meals. Wanders in day room. Speech mostly word salad. Has taken meds only with firm encouragement. Has seemed less irritable today. Still glares a lot at others.
[2019-10-13] MEDS: traZODone 50 MG TABLET. PO SCH (19:40)
[2019-10-13] MEDS: QUEtiapine 50 MG TABLET. PO SCH (19:40)
[2019-10-13] MEDS: MELATONIN 3 MG TABLET PO SCH (19:40)
--- NOTE | 2019-10-13 21:26 | PDOC ---
Exam Note: Saeed Note: Please also refer to the separate dictated note~for this date of service dictated separately.~Patient seen individually. Discussed the patient with Nursing staff reviewed the chart.~Reviewed interim history and current functioning. Reviewed vital signs,~Labs/ Radiology~and current medications noted below. Continue current treatment with the changes noted in the dictated addendum note Assessment: Vital Signs/I&O: Vital Signs Date Time Temp Pulse Resp B/P (MAP) Pulse Ox O2 Delivery O2 Flow Rate FiO2 10/13/19 16:12 98.0 80 20 110/70 (83) 97 Room Air I & O 10/12/19 10/12/19 10/13/19 15:00 23:00 07:00 Intake Total 480 ml 480 ml 360 ml Balance 480 ml 480 ml 360 ml Current Medications: Meds: Current Medications Medications (Trade) Dose Ordered Sig/Tati Route PRN Reason Start Time Stop Time Status Last Admin Dose Admin Sertraline HCl (Zoloft) 50 mg DAILY PO 10/13/19 09:00 10/13/19 08:06 I have reviewed the current psychotropics carefully including drug interactions. Risk benefit ratio favors no change other than as noted in my dictated progress note. 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
--- NOTE | 2019-10-14 01:06 | NUR ---
Pt took HS meds with much encouragement. Still glares at others at times. Speech non-sensical. Wandered in day room prior to going to bed. Resting quietly.
[2019-10-14 05:22] VITALS: BP 128/80
[2019-10-14] MEDS: DIVALPROEX SODIUM 250 MG TABLET.DR. PO SCH ×3 (08:33→20:01)
[2019-10-14] MEDS: THIAMINE 100 MG TABLET. PO SCH (08:33)
[2019-10-14] MEDS: POLYETHYLENE GLYCOL 3350 17 GM PACKET. PO SCH (08:34)
[2019-10-14] MEDS: amLODIPine BESYLATE 5 MG TABLET PO SCH (08:34)
[2019-10-14] MEDS: FOLIC ACID 1 MG TABLET PO SCH (08:34)
[2019-10-14] MEDS: MULTIVITAMIN with MINERAL TABLET. PO SCH (08:34)
[2019-10-14] MEDS: QUEtiapine 25 MG TABLET. PO SCH ×3 (08:34→17:00)
[2019-10-14] MEDS: SERTRALINE 50 MG TABLET. PO SCH (08:34)
--- NOTE | 2019-10-14 13:16 | NUR ---
Pt in dining room for morning meds and assessment. Pt resistive with medications but decided she would take them after being told she would go to quiet room until meds taken. Pt took afternoon meds without resistance.
--- NOTE | 2019-10-14 13:30 | NUR ---
Resumed pt care. Pt wandering in day room.
[2019-10-14 16:19] VITALS: BP 113/73
[2019-10-14] MEDS: MELATONIN 3 MG TABLET PO SCH (20:01)
[2019-10-14] MEDS: traZODone 50 MG TABLET. PO SCH (20:01)
[2019-10-14] MEDS: QUEtiapine 50 MG TABLET. PO SCH (20:01)
--- NOTE | 2019-10-14 21:30 | PDOC ---
Exam Note: Saeed Note: Please also refer to the separate dictated note~for this date of service dictated separately.~Patient seen individually. Discussed the patient with Nursing staff reviewed the chart.~Reviewed interim history and current functioning. Reviewed vital signs,~Labs/ Radiology~and current medications noted below. Continue current treatment with the changes noted in the dictated addendum note Assessment: Vital Signs/I&O: Vital Signs Date Time Temp Pulse Resp B/P (MAP) Pulse Ox O2 Delivery O2 Flow Rate FiO2 10/14/19 16:19 98.6 101 16 113/73 (86) 96 10/13/19 16:12 Room Air I & O 10/13/19 10/13/19 10/14/19 15:00 23:00 07:00 Intake Total 930 ml 720 ml Balance 930 ml 720 ml Current Medications: I have reviewed the current psychotropics carefully including drug interactions. Risk benefit ratio favors no change other than as noted in my dictated progress note. 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
--- NOTE | 2019-10-14 23:54 | NUR ---
Pt wandering the unit this evening. Pt highly disorganized, staring into space. A/O to first name only. Compliant with whole medications.
--- NOTE | 2019-10-15 05:30 | PN ---
DATE: 10/12/2019 PSYCHIATRIC PROGRESS NOTE This late entry 10/12/2019 covers elements not covered in my initial note. SUBJECTIVE: I met with the patient evening of 10/12/2019. Per nursing report by JACKSON Carroll, the patient refused a CT head, this has been canceled for now. We may do it when she is more cooperative. She isolates, stands by herself, had to be in the [place] Hallway to reduce sensory stimuli causing worsening agitation. She slept 4-1/4 hours previous night. We will increase trazodone from 50 mg at bedtime, may repeat x 1 up to 75 mg at bedtime, may repeat x 1. REVIEW OF SYSTEMS: No CV, , PULMONARY, EYE, ENT system symptoms on review. Reliability poor. MENTAL STATUS EXAM: Oriented to herself. Insight, judgment, recent and remote memory, attention, concentration, fund of knowledge poor, consistent with her diagnosis mentioned in my initial note. PLAN: No change from initial note. ASHLIE CINTRON MD DR: JOIE/glenn JOB#: [id number] / [id number]
[2019-10-15 06:05] VITALS: BP 131/81
[2019-10-15 08:16] LABS: BASO % 1 % (0-3); EOS # 0.1 x10^3/uL (0.0-0.7); EOS % 2 % (0-3); HEMATOCRIT 39.9 % (36.0-47.0); HEMOGLOBIN 13.2 g/dL (12.0-15.5); LYMPH # 2.2 x10^3/uL (1.0-4.8); LYMPH % 32 % (24-48); MEAN CORPUSCULAR HEMOGLOBIN 31 pg (25-35); MEAN CORPUSCULAR HGB CONC 33 g/dL (31-37); MEAN CORPUSCULAR VOLUME 94 fL (79-100); MONO # 0.8 x10^3/uL (0.0-1.1); MONO % 12 % (0-9); NEUT # 3.7 x10^3uL (1.8-7.7); NEUT % 54 % (31-73); PLATELET COUNT 283 x10^3/uL (140-400); RED BLOOD COUNT 4.24 x10^6/uL (3.50-5.40); RED CELL DISTRIBUTION WIDTH 14.6 % (11.5-14.5)
[2019-10-15 08:45] LABS: ALBUMIN 2.7 g/dL (3.4-5.0); ALBUMIN/GLOBULIN RATIO 0.8 (1.0-1.7); CALCIUM 8.8 mg/dL (8.5-10.1); CREATININE 0.6 mg/dL (0.6-1.0); GFR 102.7; TOTAL BILIRUBIN 0.1 mg/dL (0.2-1.0); TOTAL PROTEIN 6.3 g/dL (6.4-8.2)
[2019-10-15] MEDS: SERTRALINE 50 MG TABLET. PO SCH (09:16)
[2019-10-15] MEDS: DIVALPROEX SODIUM 250 MG TABLET.DR. PO SCH ×3 (09:16→20:37)
[2019-10-15] MEDS: QUEtiapine 25 MG TABLET. PO SCH ×3 (09:16→16:35)
[2019-10-15] MEDS: THIAMINE 100 MG TABLET. PO SCH (09:17)
[2019-10-15] MEDS: FOLIC ACID 1 MG TABLET PO SCH (09:17)
[2019-10-15] MEDS: POLYETHYLENE GLYCOL 3350 17 GM PACKET. PO SCH (09:17)
[2019-10-15] MEDS: amLODIPine BESYLATE 5 MG TABLET PO SCH (09:17)
[2019-10-15] MEDS: MULTIVITAMIN with MINERAL TABLET. PO SCH (09:18)
--- NOTE | 2019-10-15 10:32 | NUR ---
RN asked pt to take to her morning pills this AM. Pt stated to nurse "I ain't taking shit." RN educated pt on the importance of taking medications. Pt still insisted on not taking meds. RN explained to pt that the sooner she took her medications the sooner she would get out of the hospital. Pt suspicious of medications given. RN told pt there was nothing funny about medications, just only her regular medicines. Pt stated "No more." Encouraged pt to be nice and respectful to staff. Will continue to monitor and reassess as appropiate.
--- NOTE | 2019-10-15 15:41 | NUR ---
Pt is suspicious and anxious. Pt wanders throughout unit. Pt had bouts of non-compliancy with medications this shift. Pt is restless, does not participate in group therapy, but helpful with other pts. Pt is now in dayroom wheeling around other pts.
[2019-10-15 15:53] VITALS: BP 106/75
[2019-10-15] MEDS: QUEtiapine 50 MG TABLET. PO SCH (20:36)
[2019-10-15] MEDS: MELATONIN 3 MG TABLET PO SCH (20:37)
[2019-10-15] MEDS: traZODone 50 MG TABLET. PO SCH (20:37)
--- NOTE | 2019-10-15 21:21 | PDOC ---
Exam Note: Saeed Note: Please also refer to the separate dictated note~for this date of service dictated separately.~Patient seen individually. Discussed the patient with Nursing staff reviewed the chart.~Reviewed interim history and current functioning. Reviewed vital signs,~Labs/ Radiology~and current medications noted below. Continue current treatment with the changes noted in the dictated addendum note Assessment: Vital Signs/I&O: Vital Signs Date Time Temp Pulse Resp B/P (MAP) Pulse Ox O2 Delivery O2 Flow Rate FiO2 10/15/19 15:53 98.6 89 16 106/75 (85) 96 10/13/19 16:12 Room Air I & O 10/14/19 10/14/19 10/15/19 15:00 23:00 07:00 Intake Total 840 ml 1000 ml 360 ml Balance 840 ml 1000 ml 360 ml Labs: Laboratory Tests Test 10/15/19 07:00 White Blood Count 7.0 x10^3/uL (4.0-11.0) Red Blood Count 4.24 x10^6/uL (3.50-5.40) Hemoglobin 13.2 g/dL (12.0-15.5) Hematocrit 39.9 % (36.0-47.0) Mean Corpuscular Volume 94 fL (79-100) Mean Corpuscular Hemoglobin 31 pg (25-35) Mean Corpuscular Hemoglobin Concent 33 g/dL (31-37) Red Cell Distribution Width 14.6 % (11.5-14.5) H Platelet Count 283 x10^3/uL (140-400) Neutrophils (%) (Auto) 54 % (31-73) Lymphocytes (%) (Auto) 32 % (24-48) Monocytes (%) (Auto) 12 % (0-9) H Eosinophils (%) (Auto) 2 % (0-3) Basophils (%) (Auto) 1 % (0-3) Neutrophils # (Auto) 3.7 x10^3uL (1.8-7.7) Lymphocytes # (Auto) 2.2 x10^3/uL (1.0-4.8) Monocytes # (Auto) 0.8 x10^3/uL (0.0-1.1) Eosinophils # (Auto) 0.1 x10^3/uL (0.0-0.7) Basophils # (Auto) 0.0 x10^3/uL (0.0-0.2) Sodium Level 145 mmol/L (136-145) Potassium Level 4.0 mmol/L (3.5-5.1) Chloride Level 110 mmol/L (98-107) H Carbon Dioxide Level 28 mmol/L (21-32) Anion Gap 7 (6-14) Blood Urea Nitrogen 11 mg/dL (7-20) Creatinine 0.6 mg/dL (0.6-1.0) Estimated GFR (Cockcroft-Gault) 102.7 BUN/Creatinine Ratio 18 (6-20) Glucose Level 80 mg/dL (70-99) Calcium Level 8.8 mg/dL (8.5-10.1) Total Bilirubin 0.1 mg/dL (0.2-1.0) L Aspartate Amino Transferase (AST) 10 U/L (15-37) L Alanine Aminotransferase (ALT) 13 U/L (14-59) L Alkaline Phosphatase 78 U/L (46-116) Total Protein 6.3 g/dL (6.4-8.2) L Albumin 2.7 g/dL (3.4-5.0) L Albumin/Globulin Ratio 0.8 (1.0-1.7) L Current Medications: I have reviewed the current psychotropics carefully including drug interactions. Risk benefit ratio favors no change other than as noted in my dictated progress note. 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
--- NOTE | 2019-10-15 21:39 | PN ---
DATE: 10/14/2019 This late entry, date of service 10/14/2019 covers elements the not covered in my initial note 10/14/2019. SUBJECTIVE: I met with the patient in the evening. According to JACKSON Palmer, the patient slept 6-1/2 hours previous night. She remains disorganized, resistive to medications, walking into other patient's rooms, lying in the bed, is oblivious of where she is. She is redirectable nevertheless. REVIEW OF SYSTEMS: No CV, , pulmonary, eye, ENT system symptoms on review. Reliability poor. MENTAL STATUS EXAM: Oriented to herself. Insight, judgment, recent and remote memory, attention, concentration, fund of knowledge poor, consistent with her diagnosis mentioned in my initial note. PLAN: No change from initial note. MAN Riley CINTRON MD DR: JOIE/glenn JOB#: [id number] / [id number]
--- NOTE | 2019-10-16 00:03 | NUR ---
Last evening pt was in day room walking around. She was labile and suspicious at times and would mutter to staff unintelligible things. Initially she was resistive to meds but later was handed her meds without comment and took them whole. She has been cooperative with cares and has been sleeping well.
--- NOTE | 2019-10-16 00:54 | PN ---
DATE: 10/13/2019 PSYCHIATRIC PROGRESS NOTE This late entry 10/13/2019 covers elements not covered in my initial note. SUBJECTIVE: I met with the patient in the evening of 10/13/2019. The patient slept 6 hours previous night per JACKSON Carroll. She did have a shower at night, but then was overstimulated[facility] refused her medications. Overall, less irritable, wandering the unit, oblivious of where she is. No PRNs given. REVIEW OF SYSTEMS: No CV, , pulmonary, eye, ENT system symptoms on review. Reliability poor. MENTAL STATUS EXAMINATION: Oriented to herself. Insight, judgment, recent and remote memory, attention, concentration, fund of knowledge poor, consistent with her diagnosis mentioned in my initial note. PLAN: No change from initial note. MAN Riley CINTRON MD DR: JOIE/glenn JOB#: [id number] / [id number]
[2019-10-16 06:28] VITALS: BP 137/84
[2019-10-16] MEDS: POLYETHYLENE GLYCOL 3350 17 GM PACKET. PO SCH (09:02)
[2019-10-16] MEDS: amLODIPine BESYLATE 5 MG TABLET PO SCH (09:03)
[2019-10-16] MEDS: MULTIVITAMIN with MINERAL TABLET. PO SCH (09:03)
[2019-10-16] MEDS: QUEtiapine 25 MG TABLET. PO SCH ×3 (09:04→17:59)
[2019-10-16] MEDS: FOLIC ACID 1 MG TABLET PO SCH (09:04)
[2019-10-16] MEDS: THIAMINE 100 MG TABLET. PO SCH (09:04)
[2019-10-16] MEDS: DIVALPROEX SODIUM 250 MG TABLET.DR. PO SCH ×3 (09:04→20:08)
[2019-10-16] MEDS: SERTRALINE 25 MG TABLET. PO SCH (09:13)
[2019-10-16 16:12] VITALS: BP 114/68
[2019-10-16] MEDS: traZODone 50 MG TABLET. PO SCH (20:09)
[2019-10-16] MEDS: MELATONIN 3 MG TABLET PO SCH (20:09)
[2019-10-16] MEDS: QUEtiapine 50 MG TABLET. PO SCH (20:09)
--- NOTE | 2019-10-16 21:31 | PDOC ---
Exam Note: Saeed Note: Please also refer to the separate dictated note~for this date of service dictated separately.~Patient seen individually. Discussed the patient with Nursing staff reviewed the chart.~Reviewed interim history and current functioning. Reviewed vital signs,~Labs/ Radiology~and current medications noted below. Continue current treatment with the changes noted in the dictated addendum note Assessment: Vital Signs/I&O: Vital Signs Date Time Temp Pulse Resp B/P (MAP) Pulse Ox O2 Delivery O2 Flow Rate FiO2 10/16/19 16:12 98.0 72 16 114/68 (83) 98 10/13/19 16:12 Room Air I & O 10/15/19 10/15/19 10/16/19 14:59 22:59 06:59 Intake Total 840 ml 360 ml 360 ml Balance 840 ml 360 ml 360 ml Current Medications: Meds: Current Medications Medications (Trade) Dose Ordered Sig/Tati Route PRN Reason Start Time Stop Time Status Last Admin Dose Admin Sertraline HCl (Zoloft) 75 mg DAILY PO 10/16/19 09:00 10/18/19 13:00 10/16/19 09:13 I have reviewed the current psychotropics carefully including drug interactions. Risk benefit ratio favors no change other than as noted in my dictated progress note. 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
--- NOTE | 2019-10-16 22:53 | NUR ---
Pt wandering unit all evening. Pt calm and cooperative. Compliant with whole medications without resistance. Pt A/O to name and . More interactive tonight than previous evenings.
--- NOTE | 2019-10-17 04:13 | PN ---
DATE: 10/16/2019 PSYCHIATRIC PROGRESS NOTE This late entry 10/15/2019 covers elements not covered in my initial note. SUBJECTIVE: I met with the patient in the evening of 10/15/2019. Per JACKSON Vidales, the patient slept 7 hours previous night. She has been confused, anxious, wandering, somewhat paranoid, intrusive, walking into other patient's rooms, resistive to medications. REVIEW OF SYSTEMS: No CV, , pulmonary, eye, ENT system symptoms on review. Reliability poor. MENTAL STATUS EXAM: Oriented to herself. Insight, judgment, recent and remote memory, attention, concentration, fund of knowledge poor, consistent with her diagnosis mentioned in my initial note. PLAN: No change from initial note. MAN Riley CINTRON MD DR: JOIE/glenn JOB#: [id number] / [id number]
[2019-10-17 06:00] VITALS: BP 128/81
[2019-10-17] MEDS: POLYETHYLENE GLYCOL 3350 17 GM PACKET. PO SCH (08:27)
[2019-10-17] MEDS: DIVALPROEX SODIUM 250 MG TABLET.DR. PO SCH ×3 (08:28→20:01)
[2019-10-17] MEDS: amLODIPine BESYLATE 5 MG TABLET PO SCH (08:28)
[2019-10-17] MEDS: QUEtiapine 25 MG TABLET. PO SCH ×3 (08:28→17:15)
[2019-10-17] MEDS: MULTIVITAMIN with MINERAL TABLET. PO SCH (08:29)
[2019-10-17] MEDS: FOLIC ACID 1 MG TABLET PO SCH (08:29)
[2019-10-17] MEDS: SERTRALINE 25 MG TABLET. PO SCH (08:29)
[2019-10-17] MEDS: THIAMINE 100 MG TABLET. PO SCH (08:29)
--- NOTE | 2019-10-17 08:34 | NUR ---
Refusing medications. Sitting with arms crossed, drank the water and ate the ice but is emphatic that she will not take the medications. Patient asking "what are you going to do?" to staff that is walking by. She continues to say "what do we do now?" and "I don't want it". Patient denies pain, says "I don't know" to all orientation questions and refused physical assessment. Will try to give medications at a later time.
[2019-10-17] MEDS ORDERED: SERTRALINE 100 MG TABLET. PO SCH (09:00)
--- NOTE | 2019-10-17 14:20 | NUR ---
Patient refused her afternoon medications from this nurse. A different nurse was able to get patient to take the medications on her first approach. Patient has been wandering, appears to be calmer and smiling more today. She stands at the edge of the groups, usually making offhanded comments that don't fit in the context of the group or conversation.
[2019-10-17 16:00] VITALS: BP 127/84
[2019-10-17] MEDS: traZODone 50 MG TABLET. PO SCH (20:02)
[2019-10-17] MEDS: QUEtiapine 50 MG TABLET. PO SCH (20:02)
[2019-10-17] MEDS: MELATONIN 3 MG TABLET PO SCH (20:02)
--- NOTE | 2019-10-17 20:50 | NUR ---
Pt walking in day room at shift change. Pt irritable, confused, and disorganized. Pt resistive to medications when approached, stating "I'm not taking it." and "Yeah, and then what?" Pt suspicious of staff and medications, refusing assessment. Pt eventually took medications when re-approached.
--- NOTE | 2019-10-17 21:27 | PDOC ---
Exam Note: Saeed Note: Please also refer to the separate dictated note~for this date of service dictated separately.~Patient seen individually. Discussed the patient with Nursing staff reviewed the chart.~Reviewed interim history and current functioning. Reviewed vital signs,~Labs/ Radiology~and current medications noted below. Continue current treatment with the changes noted in the dictated addendum note Assessment: Vital Signs/I&O: Vital Signs Date Time Temp Pulse Resp B/P (MAP) Pulse Ox O2 Delivery O2 Flow Rate FiO2 10/17/19 16:00 98.0 80 20 127/84 (98) 94 10/13/19 16:12 Room Air I & O 10/16/19 10/16/19 10/17/19 15:00 23:00 07:00 Intake Total 720 ml 660 ml Balance 720 ml 660 ml Current Medications: I have reviewed the current psychotropics carefully including drug interactions. Risk benefit ratio favors no change other than as noted in my dictated progress note. 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
--- NOTE | 2019-10-17 23:43 | PN ---
DATE: 10/16/2019 PSYCHIATRIC PROGRESS NOTE This late entry October 15, covers elements not covered in my initial note. SUBJECTIVE: I met with the patient evening of October 15. Per JACKSON Fernandez, the patient slept 7 hours previous night. She was resistive in the morning for her medications and having her arm band checked. Later, she took her meds, slept 7 hours, confused, wandering in the unit, oblivious of where she. REVIEW OF SYSTEMS: No CV, , pulmonary, eye, ENT system symptoms on review. Reliability poor. MENTAL STATUS EXAM: Oriented to herself. Insight, judgment, recent and remote memory, attention, concentration, fund of knowledge poor, consistent with her diagnosis mentioned in my initial note. PLAN: No change from initial note, but we will go ahead and increase the Zoloft from 75 mg a day to 100 mg a day after she has been on 75 mg for 3 days. Rest unchanged for now. ASHLIE CINTRON MD DR: JOIE/glenn JOB#: [id number] / [id number]
[2019-10-18 06:12] VITALS: BP 124/94
[2019-10-18] MEDS: THIAMINE 100 MG TABLET. PO SCH (09:48)
[2019-10-18] MEDS: SERTRALINE 25 MG TABLET. PO SCH (09:48)
[2019-10-18] MEDS: QUEtiapine 25 MG TABLET. PO SCH ×2 (09:48→13:21)
[2019-10-18] MEDS: FOLIC ACID 1 MG TABLET PO SCH (09:49)
[2019-10-18] MEDS: DIVALPROEX SODIUM 250 MG TABLET.DR. PO SCH ×3 (09:49→20:17)
[2019-10-18] MEDS: amLODIPine BESYLATE 5 MG TABLET PO SCH (09:49)
[2019-10-18] MEDS: MULTIVITAMIN with MINERAL TABLET. PO SCH (09:49)
[2019-10-18] MEDS: POLYETHYLENE GLYCOL 3350 17 GM PACKET. PO SCH (09:49)
--- NOTE | 2019-10-18 11:23 | NUR ---
WEEKLY ACTIVITY THERAPY NOTE Date of Admission: 10/08/2019 Date of AT Assessment: 10/11/2019 Goal aimed: to increase engagement and socialization Initial goal: Pt. will participate in at least one Activity Therapy group or individual session moderately before discharge. Weekly progress towards goal: achieved Group participation level: 4 full, 1 mod, 2 min Weekly highlights: rainbow chain on Tuesday- independently made link by the end of group Behaviors observed: wandering in day room, talking to self, more interest in groups over the week, standing during group usually Plan: change goal to: Pt. will participate in at least least one Activity Therapy group per day Beneficial adaptations: influenced by others
--- NOTE | 2019-10-18 16:02 | NUR ---
Patient has been wandering around in the day room most of the day. She took her morning medications without a problem, nurse approached her with name mary suero and handed the meds to her with the water. At lunch medication pass the patient took the cup of water and drank it and then didn't take the medications, she looked in the cup and handed it back to the nurse. Patient later took them at snack time with pudding. This afternoon the patient was in the day room talking with this nurse and patient said "Where do they get these people from?" when nurse asked her what people, she made a sweeping gesture with her arm and said "they are all crazy". Nurse explained that this is a memory-care hospital and most of the patients come from nursing homes and other hospitals. She then told nurse, "well I am not in a hospital and I am leaving". Patient was unwilling to answer orientation questions this morning but is responsive when her name is called.
[2019-10-18 16:27] VITALS: BP 115/78
[2019-10-18] MEDS: QUEtiapine 50 MG TABLET. PO SCH ×2 (17:36→20:17)
[2019-10-18] MEDS: MELATONIN 3 MG TABLET PO SCH (20:17)
[2019-10-18] MEDS: traZODone 50 MG TABLET. PO SCH (20:17)
--- NOTE | 2019-10-18 20:59 | NUR ---
Pt walking in day room at shift change. Pt calm, disorganized, and confused but has been pleasant and interactive with staff thus far this evening. No agitation or aggression noted at this time. Pt cooperative with assessment and compliant with medications administered whole this evening.
--- NOTE | 2019-10-18 21:23 | PDOC ---
Exam Note: Saeed Note: Please also refer to the separate dictated note~for this date of service dictated separately.~Patient seen individually. Discussed the patient with Nursing staff reviewed the chart.~Reviewed interim history and current functioning. Reviewed vital signs,~Labs/ Radiology~and current medications noted below. Continue current treatment with the changes noted in the dictated addendum note Assessment: Vital Signs/I&O: Vital Signs Date Time Temp Pulse Resp B/P (MAP) Pulse Ox O2 Delivery O2 Flow Rate FiO2 10/18/19 16:27 97.8 83 18 115/78 (90) 96 10/18/19 06:12 Room Air I & O 10/17/19 10/17/19 10/18/19 15:00 23:00 07:00 Intake Total 600 ml 900 ml Balance 600 ml 900 ml Current Medications: Meds: Current Medications Medications (Trade) Dose Ordered Sig/Tati Route PRN Reason Start Time Stop Time Status Last Admin Dose Admin Quetiapine Fumarate (SEROquel) 50 mg 0900,1700 PO 10/18/19 17:00 10/18/19 17:36 Quetiapine Fumarate (SEROquel) 37.5 mg 1300 PO 10/18/19 13:00 10/18/19 13:21 I have reviewed the current psychotropics carefully including drug interactions. Risk benefit ratio favors no change other than as noted in my dictated progress note. 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
[2019-10-19 07:04] VITALS: BP 99/63
[2019-10-19 08:17] VITALS: BP 97/66
[2019-10-19] MEDS: THIAMINE 100 MG TABLET. PO SCH (08:19)
[2019-10-19] MEDS: QUEtiapine 50 MG TABLET. PO SCH ×3 (08:19→19:55)
[2019-10-19] MEDS: DIVALPROEX SODIUM 250 MG TABLET.DR. PO SCH ×3 (08:19→19:56)
[2019-10-19] MEDS: POLYETHYLENE GLYCOL 3350 17 GM PACKET. PO SCH (08:19)
[2019-10-19] MEDS: amLODIPine BESYLATE 5 MG TABLET PO SCH (08:19)
[2019-10-19] MEDS: CHOLECALCIFEROL (VITAMIN D3) 50,000 UNIT CAPSULE PO SCH (08:19)
[2019-10-19] MEDS: SERTRALINE 100 MG TABLET. PO SCH (08:19)
[2019-10-19] MEDS: FOLIC ACID 1 MG TABLET PO SCH (08:19)
[2019-10-19] MEDS: MULTIVITAMIN with MINERAL TABLET. PO SCH (08:19)
--- NOTE | 2019-10-19 10:36 | NUR ---
Pt has been disorganized, wandering and restless this morning. A/O to first name only. Pt irritable with assessment questions. Compliant with whole medications. Pt currently wandering around the unit. Will continue to monitor.
--- NOTE | 2019-10-19 10:54 | NUR ---
FITO received a call from pt legal guardian, who questioned how long pt would be on the unit. Both parties are under the agreement that pt is to return to [facility]. At this time, they are looking at getting pt financials together, as the facility is requesting to be the direct payee. FITO will plan to contact pt guardian in the beginning of next week with udpates.
[2019-10-19] MEDS: QUEtiapine 25 MG TABLET. PO SCH (12:48)
[2019-10-19 15:46] VITALS: BP 100/60
[2019-10-19] MEDS: MELATONIN 3 MG TABLET PO SCH (19:55)
[2019-10-19] MEDS: traZODone 50 MG TABLET. PO SCH (19:56)
--- NOTE | 2019-10-19 20:12 | PN ---
DATE: 10/17/2019 PSYCHIATRIC PROGRESS NOTE This late entry, 10/16, covers the elements not covered in my initial note. SUBJECTIVE: I met with the patient in the evening of 10/16. Per JACKSON Fernandez, the patient slept 6-3/4 hours previous night. She remains confused as random questions, totally oblivious of her surroundings, often stands and stares at things, refuses medications. Zoloft will be increased on the . REVIEW OF SYSTEMS: No CV, , pulmonary, eye, ENT systems symptoms on review. Reliability poor. MENTAL STATUS EXAM: Oriented to herself. Insight, judgment, recent and remote memory, attention, concentration, fund of knowledge poor, consistent with her diagnosis mentioned in my initial note. PLAN: No change from initial note. MAN Riley CINTRON MD DR: JOIE/glenn JOB#: [id number] / [id number]
--- NOTE | 2019-10-19 21:02 | NUR ---
Pt walking around in day room at shift change. Pt calm, pleasantly confused this evening, and interactive with staff. Pt cooperative with assessment and compliant with medications administered whole.
--- NOTE | 2019-10-19 21:26 | PDOC ---
Exam Note: Saeed Note: Please also refer to the separate dictated note~for this date of service dictated separately.~Patient seen individually. Discussed the patient with Nursing staff reviewed the chart.~Reviewed interim history and current functioning. Reviewed vital signs,~Labs/ Radiology~and current medications noted below. Continue current treatment with the changes noted in the dictated addendum note Assessment: Vital Signs/I&O: Vital Signs Date Time Temp Pulse Resp B/P (MAP) Pulse Ox O2 Delivery O2 Flow Rate FiO2 10/19/19 15:46 98.5 77 20 100/60 (73) 97 10/18/19 06:12 Room Air I & O 10/18/19 10/18/19 10/19/19 15:00 23:00 07:00 Intake Total 360 ml 360 ml 240 ml Balance 360 ml 360 ml 240 ml Current Medications: Meds: Current Medications Medications (Trade) Dose Ordered Sig/Tati Route PRN Reason Start Time Stop Time Status Last Admin Dose Admin Sertraline HCl (Zoloft) 100 mg DAILY PO 10/19/19 09:00 10/19/19 08:19 I have reviewed the current psychotropics carefully including drug interactions. Risk benefit ratio favors no change other than as noted in my dictated progress note. 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
[2019-10-19] MEDS ORDERED: NYSTATIN TOPICAL POWDER 15GM BOTTLE. TP ONE (22:32)
--- NOTE | 2019-10-20 00:50 | PN ---
DATE: 10/18/2019 PSYCHIATRIC PROGRESS NOTE This late entry, 10/18/2019, covers elements not covered in my initial note. SUBJECTIVE: I met with the patient the evening of 10/18/2019. The patient was also staffed at treatment team meeting with the entire team in the morning. The patient is sleeping 6 hours average. Appetite is 75%. She remains confused, oblivious, staring at things, unaware of where she is. REVIEW OF SYSTEMS: No CV, , pulmonary, eye, ENT system symptoms on review. Reliability is poor. MENTAL STATUS EXAM: Oriented to herself. Insight, judgment, recent and remote memory, attention, concentration, fund of knowledge poor, consistent with her diagnosis mentioned in my initial note. PLAN: No change from initial note. MAN Riley CINTRON MD DR: JOIE/glenn JOB#: [id number] / [id number]
[2019-10-20 06:37] VITALS: BP 124/87
[2019-10-20] MEDS: DIVALPROEX SODIUM 250 MG TABLET.DR. PO SCH ×3 (08:55→19:36)
[2019-10-20] MEDS: SERTRALINE 100 MG TABLET. PO SCH (08:55)
[2019-10-20] MEDS: QUEtiapine 50 MG TABLET. PO SCH ×3 (08:55→19:36)
[2019-10-20] MEDS: POLYETHYLENE GLYCOL 3350 17 GM PACKET. PO SCH (08:55)
[2019-10-20] MEDS: FOLIC ACID 1 MG TABLET PO SCH (08:55)
[2019-10-20] MEDS: MULTIVITAMIN with MINERAL TABLET. PO SCH (08:55)
[2019-10-20] MEDS: THIAMINE 100 MG TABLET. PO SCH (08:55)
[2019-10-20] MEDS: amLODIPine BESYLATE 5 MG TABLET PO SCH (08:55)
[2019-10-20] MEDS: NYSTATIN TOPICAL POWDER 15GM BOTTLE. TP SCH ×2 (08:56→19:36)
[2019-10-20 09:53] LABS: BASO % 0 % (0-3); EOS # 0.1 x10^3/uL (0.0-0.7); EOS % 2 % (0-3); HEMOGLOBIN 13.6 g/dL (12.0-15.5); LYMPH # 1.9 x10^3/uL (1.0-4.8); LYMPH % 25 % (24-48); MEAN CORPUSCULAR HEMOGLOBIN 32 pg (25-35); MEAN CORPUSCULAR HGB CONC 33 g/dL (31-37); MEAN CORPUSCULAR VOLUME 96 fL (79-100); MONO # 0.7 x10^3/uL (0.0-1.1); MONO % 9 % (0-9); NEUT # 4.9 x10^3uL (1.8-7.7); NEUT % 64 % (31-73); PLATELET COUNT 274 x10^3/uL (140-400); RED CELL DISTRIBUTION WIDTH 14.8 % (11.5-14.5); WHITE BLOOD COUNT 7.7 x10^3/uL (4.0-11.0)
[2019-10-20 09:54] LABS: ALBUMIN/GLOBULIN RATIO 0.7 (1.0-1.7); CALCIUM 9.5 mg/dL (8.5-10.1); CREATININE 0.8 mg/dL (0.6-1.0); GFR 73.7; TOTAL BILIRUBIN 0.1 mg/dL (0.2-1.0); TOTAL PROTEIN 7.2 g/dL (6.4-8.2)
--- NOTE | 2019-10-20 11:17 | NUR ---
Pt is calm, cooperative, compliant, confused. No agitation, no aggression, no hallucinations, no delusions. She is compliant with her medication and assessment.
[2019-10-20] MEDS: QUEtiapine 25 MG TABLET. PO SCH (13:22)
[2019-10-20 16:00] VITALS: BP 124/62
[2019-10-20] MEDS: traZODone 50 MG TABLET. PO SCH (19:36)
[2019-10-20] MEDS: MELATONIN 3 MG TABLET PO SCH (19:36)
--- NOTE | 2019-10-20 21:20 | PDOC ---
Exam Note: Saeed Note: Please also refer to the separate dictated note~for this date of service dictated separately.~Patient seen individually. Discussed the patient with Nursing staff reviewed the chart.~Reviewed interim history and current functioning. Reviewed vital signs,~Labs/ Radiology~and current medications noted below. Continue current treatment with the changes noted in the dictated addendum note Assessment: Vital Signs/I&O: Vital Signs Date Time Temp Pulse Resp B/P (MAP) Pulse Ox O2 Delivery O2 Flow Rate FiO2 10/20/19 16:00 97.8 75 16 124/62 (82) 93 10/18/19 06:12 Room Air I & O 10/19/19 10/19/19 10/20/19 15:00 23:00 07:00 Intake Total 630 ml 240 ml 360 ml Balance 630 ml 240 ml 360 ml Labs: Laboratory Tests Test 10/20/19 09:05 White Blood Count 7.7 x10^3/uL (4.0-11.0) Red Blood Count 4.30 x10^6/uL (3.50-5.40) Hemoglobin 13.6 g/dL (12.0-15.5) Hematocrit 41.0 % (36.0-47.0) Mean Corpuscular Volume 96 fL (79-100) Mean Corpuscular Hemoglobin 32 pg (25-35) Mean Corpuscular Hemoglobin Concent 33 g/dL (31-37) Red Cell Distribution Width 14.8 % (11.5-14.5) H Platelet Count 274 x10^3/uL (140-400) Neutrophils (%) (Auto) 64 % (31-73) Lymphocytes (%) (Auto) 25 % (24-48) Monocytes (%) (Auto) 9 % (0-9) Eosinophils (%) (Auto) 2 % (0-3) Basophils (%) (Auto) 0 % (0-3) Neutrophils # (Auto) 4.9 x10^3uL (1.8-7.7) Lymphocytes # (Auto) 1.9 x10^3/uL (1.0-4.8) Monocytes # (Auto) 0.7 x10^3/uL (0.0-1.1) Eosinophils # (Auto) 0.1 x10^3/uL (0.0-0.7) Basophils # (Auto) 0.0 x10^3/uL (0.0-0.2) Sodium Level 141 mmol/L (136-145) Potassium Level 4.0 mmol/L (3.5-5.1) Chloride Level 106 mmol/L (98-107) Carbon Dioxide Level 28 mmol/L (21-32) Anion Gap 7 (6-14) Blood Urea Nitrogen 15 mg/dL (7-20) Creatinine 0.8 mg/dL (0.6-1.0) Estimated GFR (Cockcroft-Gault) 73.7 BUN/Creatinine Ratio 19 (6-20) Glucose Level 97 mg/dL (70-99) Calcium Level 9.5 mg/dL (8.5-10.1) Total Bilirubin 0.1 mg/dL (0.2-1.0) L Aspartate Amino Transferase (AST) 13 U/L (15-37) L Alanine Aminotransferase (ALT) 14 U/L (14-59) Alkaline Phosphatase 88 U/L (46-116) Total Protein 7.2 g/dL (6.4-8.2) Albumin 3.0 g/dL (3.4-5.0) L Albumin/Globulin Ratio 0.7 (1.0-1.7) L Current Medications: Meds: Current Medications Medications (Trade) Dose Ordered Sig/Tati Route PRN Reason Start Time Stop Time Status Last Admin Dose Admin Nystatin (Nystop) 1 rianna BID TP 10/20/19 09:00 10/20/19 19:36 I have reviewed the current psychotropics carefully including drug interactions. Risk benefit ratio favors no change other than as noted in my dictated progress note. 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
--- NOTE | 2019-10-20 23:22 | NUR ---
Assumed care of pt from Kushal PAZ at 2300. Pt walking in hallway when this nurse assumed care. Pt calm, pleasant, and reported that she was ready for bed. Pt assisted to room, cooperative with HS cares. Pt currently resting in bed w/eyes closed.
[2019-10-21 06:27] VITALS: BP 106/62
[2019-10-21] MEDS: DIVALPROEX SODIUM 250 MG TABLET.DR. PO SCH ×3 (08:48→19:41)
[2019-10-21] MEDS: POLYETHYLENE GLYCOL 3350 17 GM PACKET. PO SCH (08:49)
[2019-10-21] MEDS: QUEtiapine 50 MG TABLET. PO SCH ×3 (08:49→19:40)
[2019-10-21] MEDS: THIAMINE 100 MG TABLET. PO SCH (08:49)
[2019-10-21] MEDS: MULTIVITAMIN with MINERAL TABLET. PO SCH (08:49)
[2019-10-21] MEDS: amLODIPine BESYLATE 5 MG TABLET PO SCH (08:49)
[2019-10-21] MEDS: FOLIC ACID 1 MG TABLET PO SCH (08:49)
[2019-10-21] MEDS: NYSTATIN TOPICAL POWDER 15GM BOTTLE. TP SCH ×2 (08:49→19:41)
[2019-10-21] MEDS: SERTRALINE 100 MG TABLET. PO SCH (08:49)
--- NOTE | 2019-10-21 09:56 | NUR ---
She is compliant with her medication and assessment. Pt is calm, cooperative, compliant, confused. No agitation, no aggression, no hallucinations, no delusions.
[2019-10-21] MEDS: QUEtiapine 25 MG TABLET. PO SCH (14:10)
[2019-10-21 15:34] VITALS: BP 94/67
[2019-10-21 19:21] VITALS: BP 100/69
[2019-10-21] MEDS: MELATONIN 3 MG TABLET PO SCH (19:40)
[2019-10-21] MEDS: traZODone 50 MG TABLET. PO SCH (19:41)
--- NOTE | 2019-10-21 20:49 | NUR ---
Pt sitting quietly in the day room at shift change. Pt calm, pleasantly confused, and interactive when approached. Pt cooperative with assessment and compliant with medications administered whole.
--- NOTE | 2019-10-21 21:40 | NUR ---
Pt restless and irritable wandering around the day room. Pt became upset and agitated with staff while they were attempting to take a pen from her. PRN repeat Trazodone administered at this time.
--- NOTE | 2019-10-21 22:09 | PN ---
DATE: PSYCHIATRIC PROGRESS NOTE This late entry 10/20/2019 covers the elements not covered in my initial note. SUBJECTIVE: I met with the patient in the evening of 10/20/2019. Per Kushal RN, the patient slept 6 hours previous night. She has a rash on her abdomen, defer to Dr. Cassidy. Compliant with the medications. Remains confused, oblivious of her surroundings. REVIEW OF SYSTEMS: No CV, , pulmonary, eye, ENT system symptoms on review. Reliability poor. MENTAL STATUS EXAM: Oriented to herself. Insight, judgment, recent and remote memory, attention, concentration, fund of knowledge poor, consistent with her diagnosis mentioned in my initial note. PLAN: No change from initial note. MAN Riley CINTRON MD DR: JOIE/glenn JOB#: [id number] / [id number]
--- NOTE | 2019-10-21 22:41 | PDOC ---
Exam Note: Saeed Note: Please also refer to the separate dictated note~for this date of service dictated separately.~Patient seen individually. Discussed the patient with Nursing staff reviewed the chart.~Reviewed interim history and current functioning. Reviewed vital signs,~Labs/ Radiology~and current medications noted below. Continue current treatment with the changes noted in the dictated addendum note Assessment: Vital Signs/I&O: Vital Signs Date Time Temp Pulse Resp B/P (MAP) Pulse Ox O2 Delivery O2 Flow Rate FiO2 10/21/19 19:21 84 16 100/69 (79) 95 Room Air 10/21/19 15:34 97.2 I & O 10/20/19 10/20/19 10/21/19 15:00 23:00 07:00 Intake Total 600 ml 480 ml 240 ml Balance 600 ml 480 ml 240 ml Current Medications: I have reviewed the current psychotropics carefully including drug interactions. Risk benefit ratio favors no change other than as noted in my dictated progress note. 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
[2019-10-22 06:25] VITALS: BP 104/71
[2019-10-22] MEDS: POLYETHYLENE GLYCOL 3350 17 GM PACKET. PO SCH (09:09)
[2019-10-22] MEDS: DIVALPROEX SODIUM 250 MG TABLET.DR. PO SCH ×3 (09:09→20:18)
[2019-10-22] MEDS: FOLIC ACID 1 MG TABLET PO SCH (09:09)
[2019-10-22] MEDS: THIAMINE 100 MG TABLET. PO SCH (09:10)
[2019-10-22] MEDS: NYSTATIN TOPICAL POWDER 15GM BOTTLE. TP SCH ×2 (09:10→20:19)
[2019-10-22] MEDS: amLODIPine BESYLATE 5 MG TABLET PO SCH (09:10)
[2019-10-22] MEDS: SERTRALINE 100 MG TABLET. PO SCH (09:10)
[2019-10-22] MEDS: MULTIVITAMIN with MINERAL TABLET. PO SCH (09:10)
[2019-10-22] MEDS: QUEtiapine 50 MG TABLET. PO SCH ×3 (09:10→20:17)
--- NOTE | 2019-10-22 11:00 | NUR ---
She is compliant with her medication and assessment. No agitation, no aggression, no hallucinations, no delusions. Pt is calm, cooperative, compliant, confused.
[2019-10-22] MEDS: QUEtiapine 25 MG TABLET. PO SCH (13:12)
[2019-10-22 16:15] VITALS: BP 97/66
--- NOTE | 2019-10-22 16:30 | PN ---
DATE: 10/19/2019 This late entry, 10/19/2019, covers elements not covered in my initial note. SUBJECTIVE: I met with the patient in the evening. Per JACKSON Dobbs, the patient slept 7 hours previous night. Blood pressure was somewhat low, blood pressure meds were held, defer to Dr. Cassidy, resistive to medications. She remains very confused. REVIEW OF SYSTEMS: No CV, , pulmonary, eye, ENT system symptoms on review. Reliability poor. She stands and stares at times, oblivious of where she is. MENTAL STATUS EXAM: Oriented to herself. Insight, judgment, recent and remote memory, attention, concentration, fund of knowledge poor, consistent with her diagnosis mentioned in my initial note. PLAN: No change from initial note. MAN Riley CINTRON MD DR: JOIE/glenn JOB#: [id number] / [id number]
[2019-10-22] MEDS: MELATONIN 3 MG TABLET PO SCH (20:18)
[2019-10-22] MEDS: traZODone 50 MG TABLET. PO SCH (20:18)
--- NOTE | 2019-10-22 21:48 | PDOC ---
Exam Note: Saeed Note: Please also refer to the separate dictated note~for this date of service dictated separately.~Patient seen individually. Discussed the patient with Nursing staff reviewed the chart.~Reviewed interim history and current functioning. Reviewed vital signs,~Labs/ Radiology~and current medications noted below. Continue current treatment with the changes noted in the dictated addendum note Assessment: Vital Signs/I&O: Vital Signs Date Time Temp Pulse Resp B/P (MAP) Pulse Ox O2 Delivery O2 Flow Rate FiO2 10/22/19 16:15 98.5 95 18 97/66 (76) 91 10/21/19 19:21 Room Air I & O 10/21/19 10/21/19 10/22/19 15:00 23:00 07:00 Intake Total 600 ml 360 ml 360 ml Balance 600 ml 360 ml 360 ml Current Medications: I have reviewed the current psychotropics carefully including drug interactions. Risk benefit ratio favors no change other than as noted in my dictated progress note. 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
--- NOTE | 2019-10-22 23:24 | NUR ---
Patient stated she wasn't going to take medications but took them without difficulty. Patient suspicious and guarded with this nurse. No hallucinations or delusions noted. Will continue to monitor.
--- NOTE | 2019-10-23 03:33 | PN ---
DATE: 10/21/2019 This late entry 10/21/2019 covers elements not covered in my initial note. SUBJECTIVE: I met with the patient in the evening of 10/21/2019. Per JACKSON De La Torre, the patient slept for three-quarter hours previous night. The patient remains confused, but pleasant, cooperative, saying thank you to nursing staff, quite a change for her. REVIEW OF SYSTEMS: No CV, , pulmonary, eye, ENT system symptoms on review. Reliability poor. MENTAL STATUS EXAM: Oriented to herself. Insight, judgment, recent and remote memory, attention, concentration, fund of knowledge poor, consistent with her diagnosis mentioned in my initial note. PLAN: No change from initial note. MAN Riley CINTRON MD DR: JOIE/glenn JOB#: [id number] / [id number]
[2019-10-23 06:25] VITALS: BP 106/72
[2019-10-23] MEDS: MULTIVITAMIN with MINERAL TABLET. PO SCH (08:39)
[2019-10-23] MEDS: FOLIC ACID 1 MG TABLET PO SCH (08:39)
[2019-10-23] MEDS: amLODIPine BESYLATE 5 MG TABLET PO SCH (08:39)
[2019-10-23] MEDS: SERTRALINE 100 MG TABLET. PO SCH (08:39)
[2019-10-23] MEDS: THIAMINE 100 MG TABLET. PO SCH (08:39)
[2019-10-23] MEDS: POLYETHYLENE GLYCOL 3350 17 GM PACKET. PO SCH (08:40)
[2019-10-23] MEDS: QUEtiapine 50 MG TABLET. PO SCH ×3 (08:40→20:09)
[2019-10-23] MEDS: DIVALPROEX SODIUM 250 MG TABLET.DR. PO SCH ×3 (08:40→20:09)
[2019-10-23] MEDS: NYSTATIN TOPICAL POWDER 15GM BOTTLE. TP SCH ×2 (10:12→20:11)
--- NOTE | 2019-10-23 12:40 | NUR ---
Patient was compliant with medications when given them during breakfast. Nurse set meds and glass of water on the table in front of patient and she picked meds up and took them. Patient did not each very much breakfast. When nurse asked her why she didn't eat, she didn't answer. Patient is confused and often says "What do we do next" and "where am I supposed to be going". Patient answers to her name when called but will not answer orientation questions.
[2019-10-23] MEDS: QUEtiapine 25 MG TABLET. PO SCH (14:44)
[2019-10-23 16:07] VITALS: BP 139/81
[2019-10-23] MEDS: traZODone 50 MG TABLET. PO SCH (20:09)
[2019-10-23] MEDS: MELATONIN 3 MG TABLET PO SCH (20:09)
--- NOTE | 2019-10-23 21:12 | PN ---
DATE: 10/22/2019 PSYCHIATRIC PROGRESS NOTE. This late entry of 10/22/2019 covers the elements not covered in my initial note. SUBJECTIVE: I met with the patient in the evening of 10/22/2019. Per JACKSON Lyles, the patient slept 6-1/2 hours previous night. Previous night, she was irritable around 10:00 p.m., obsessed about getting a pen that she wanted, did redirect. She did well in the morning and during the day, refused to take her medications at one point, took them later. REVIEW OF SYSTEMS: No CV, , pulmonary, eye, ENT system symptoms on review. Reliability poor. MENTAL STATUS EXAM: Oriented to herself. Insight, judgment, recent and remote memory, attention, concentration, fund of knowledge poor, consistent with her diagnosis mentioned in my initial note. PLAN: No change from initial note. MAN iRley CINTRON MD DR: JOIE/glenn JOB#: [id number] / [id number]
--- NOTE | 2019-10-23 21:43 | PDOC ---
Exam Note: Saeed Note: Please also refer to the separate dictated note~for this date of service dictated separately.~Patient seen individually. Discussed the patient with Nursing staff reviewed the chart.~Reviewed interim history and current functioning. Reviewed vital signs,~Labs/ Radiology~and current medications noted below. Continue current treatment with the changes noted in the dictated addendum note Assessment: Vital Signs/I&O: Vital Signs Date Time Temp Pulse Resp B/P (MAP) Pulse Ox O2 Delivery O2 Flow Rate FiO2 10/23/19 16:07 97.9 84 16 139/81 (100) 99 10/21/19 19:21 Room Air I & O 10/22/19 10/22/19 10/23/19 15:00 23:00 07:00 Intake Total 200 ml 480 ml Balance 200 ml 480 ml Current Medications: I have reviewed the current psychotropics carefully including drug interactions. Risk benefit ratio favors no change other than as noted in my dictated progress note. 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
--- NOTE | 2019-10-23 23:19 | NUR ---
Patient in dayroom at shift change. Patient stated "I was watching out for her (another patient) and she's not doing too good." Patient pleasant, calm and cooperative with assessment. Took medications without difficulty and asked "is this all I need?" At HS, nystatin applied under bilateral breasts and a washcloth placed under breasts. Patient stated "that feels so much better." Patient currently in bed with eyes closed. Will continue to monitor.
[2019-10-24 06:23] VITALS: BP 113/72
[2019-10-24] MEDS: SERTRALINE 100 MG TABLET. PO SCH (08:21)
[2019-10-24] MEDS: QUEtiapine 50 MG TABLET. PO SCH ×3 (08:22→19:53)
[2019-10-24] MEDS: FOLIC ACID 1 MG TABLET PO SCH (08:22)
[2019-10-24] MEDS: THIAMINE 100 MG TABLET. PO SCH (08:22)
[2019-10-24] MEDS: MULTIVITAMIN with MINERAL TABLET. PO SCH (08:22)
[2019-10-24] MEDS: amLODIPine BESYLATE 5 MG TABLET PO SCH (08:22)
[2019-10-24] MEDS: DIVALPROEX SODIUM 250 MG TABLET.DR. PO SCH ×3 (08:22→19:52)
[2019-10-24] MEDS: POLYETHYLENE GLYCOL 3350 17 GM PACKET. PO SCH (08:23)
[2019-10-24] MEDS: NYSTATIN TOPICAL POWDER 15GM BOTTLE. TP SCH ×2 (08:23→19:53)
[2019-10-24] MEDS: QUEtiapine 25 MG TABLET. PO SCH (13:00)
--- NOTE | 2019-10-24 13:33 | PN ---
DATE: 10/23/2019 PSYCHIATRIC PROGRESS NOTE This late entry 10/23/2019 covers elements not covered in my initial note. SUBJECTIVE: I met with the patient evening of 10/23/2019. Per JACKSON Fernandez, the patient slept 7-1/4 hours previous night. She is compliant with her medications, wanting to leave, resistive to medications, oblivious of her surroundings. REVIEW OF SYSTEMS: No CV, , pulmonary, eye, ENT system symptoms on review. Reliability poor. MENTAL STATUS EXAM: Oriented to herself. Insight, judgment, recent and remote memory, attention, concentration, fund of knowledge poor, consistent with her diagnosis. She sometimes stands, just stares, oblivious of her surroundings, but less paranoid as I met with her. Answered questions. LABORATORY DATA: Reviewed. IMPRESSION: Unchanged from initial note. PLAN: No change from initial note. MAN Riley CINTRON MD DR: JOIE/glenn JOB#: [id number] / [id number]
--- NOTE | 2019-10-24 13:55 | NUR ---
Pt in dining room for morning meds and assessment. Calm and compliant, interactive with this nurse, disorganized. Pt is getting nystatin powder under breasts for excoriation.
[2019-10-24 15:42] VITALS: BP 122/96
[2019-10-24] MEDS: traZODone 50 MG TABLET. PO SCH (19:52)
[2019-10-24] MEDS: MELATONIN 3 MG TABLET PO SCH (19:52)
--- NOTE | 2019-10-24 21:55 | PDOC ---
Exam Note: Saeed Note: Please also refer to the separate dictated note~for this date of service dictated separately.~Patient seen individually. Discussed the patient with Nursing staff reviewed the chart.~Reviewed interim history and current functioning. Reviewed vital signs,~Labs/ Radiology~and current medications noted below. Continue current treatment with the changes noted in the dictated addendum note Assessment: Vital Signs/I&O: Vital Signs Date Time Temp Pulse Resp B/P (MAP) Pulse Ox O2 Delivery O2 Flow Rate FiO2 10/24/19 15:42 98.6 79 16 122/96 (105) 98 10/21/19 19:21 Room Air I & O 10/23/19 10/23/19 10/24/19 15:00 23:00 07:00 Intake Total 960 ml 660 ml Balance 960 ml 660 ml Current Medications: I have reviewed the current psychotropics carefully including drug interactions. Risk benefit ratio favors no change other than as noted in my dictated progress note. 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
--- NOTE | 2019-10-24 23:52 | NUR ---
Patient alert and interactive during assessment and medication administration. Patient in day room wandering and interacting with another patient. Patient began to get agitated, saying she needed to "get out of this fucking place." Assessment completed in her room and patient was calm and cooperative. Nystatin applied under bilateral breasts with washcloths under each, and patient said that felt so much better.
[2019-10-25 07:00] VITALS: BP 122/70
[2019-10-25 07:23] LABS: BASO % 1 % (0-3); EOS # 0.1 x10^3/uL (0.0-0.7); EOS % 1 % (0-3); HEMATOCRIT 42.9 % (36.0-47.0); HEMOGLOBIN 14.2 g/dL (12.0-15.5); LYMPH # 2.2 x10^3/uL (1.0-4.8); LYMPH % 27 % (24-48); MEAN CORPUSCULAR HEMOGLOBIN 31 pg (25-35); MEAN CORPUSCULAR HGB CONC 33 g/dL (31-37); MEAN CORPUSCULAR VOLUME 95 fL (79-100); MONO # 0.9 x10^3/uL (0.0-1.1); MONO % 12 % (0-9); NEUT # 4.7 x10^3uL (1.8-7.7); NEUT % 59 % (31-73); PLATELET COUNT 259 x10^3/uL (140-400); RED BLOOD COUNT 4.53 x10^6/uL (3.50-5.40); RED CELL DISTRIBUTION WIDTH 14.9 % (11.5-14.5); WHITE BLOOD COUNT 7.9 x10^3/uL (4.0-11.0)
[2019-10-25 07:42] LABS: ALBUMIN/GLOBULIN RATIO 0.7 (1.0-1.7); CALCIUM 9.1 mg/dL (8.5-10.1); CREATININE 0.7 mg/dL (0.6-1.0); GFR 85.9; POTASSIUM 4.1 mmol/L (3.5-5.1); TOTAL BILIRUBIN 0.1 mg/dL (0.2-1.0); TOTAL PROTEIN 7.6 g/dL (6.4-8.2)
[2019-10-25 07:47] LABS: VAL ACID 63 mcg/mL (50-100)
[2019-10-25] MEDS: amLODIPine BESYLATE 5 MG TABLET PO SCH (08:01)
[2019-10-25] MEDS: DIVALPROEX SODIUM 250 MG TABLET.DR. PO SCH ×3 (08:01→20:14)
[2019-10-25] MEDS: MULTIVITAMIN with MINERAL TABLET. PO SCH (08:01)
[2019-10-25] MEDS: THIAMINE 100 MG TABLET. PO SCH (08:01)
[2019-10-25] MEDS: SERTRALINE 100 MG TABLET. PO SCH (08:01)
[2019-10-25] MEDS: FOLIC ACID 1 MG TABLET PO SCH (08:01)
[2019-10-25] MEDS: QUEtiapine 50 MG TABLET. PO SCH ×3 (08:01→20:14)
[2019-10-25] MEDS: POLYETHYLENE GLYCOL 3350 17 GM PACKET. PO SCH (08:01)
[2019-10-25] MEDS: NYSTATIN TOPICAL POWDER 15GM BOTTLE. TP SCH ×2 (08:05→20:13)
--- NOTE | 2019-10-25 09:34 | NUR ---
Nursing Note Pt pleasantly confused, oblivious of her surrounding, however took her meds wo difficulty. No agitation. No aggression.
--- NOTE | 2019-10-25 10:16 | NUR ---
WEEKLY ACTIVITY THERAPY NOTE Date of Admission: 10/08/2019 Date of AT Assessment: 10/11/2019 Goal aimed: to increase engagement and socialization Initial goal: Pt. will participate in at least one Activity Therapy group or individual session moderately before discharge. Goal changed 10/18/2019: Pt. will participate in at least least one Activity Therapy group per day Weekly progress towards goal: did not achieve, no groups on Tuesday Group participation level: 1 min,1 mod, 3 full Weekly highlights: engaged in fishing activity Behaviors observed: often standing and mumbling to herself, doesn't make complete sense all the time, Plan: no change to goal Beneficial adaptations: influenced by others, direct support
[2019-10-25] MEDS: QUEtiapine 25 MG TABLET. PO SCH (12:14)
--- NOTE | 2019-10-25 15:22 | NUR ---
WEEKLY NOTE: Pt is eating roughly 75% of meals and sleeping 6.75 hours a night. Pt does sit in the dayroom and interacts with peers and staff. Pt is slightly confused but cooperative with all cares and taking medications. Pt is very attentive to some of her peers and looks towards helping them out when they are not able to understand. Pt will look to discharge back to [facility] on Tuesday.
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
[2019-10-25 16:37] VITALS: BP 110/75
[2019-10-25] MEDS: traZODone 50 MG TABLET. PO SCH (20:13)
[2019-10-25] MEDS: MELATONIN 3 MG TABLET PO SCH (20:14)
--- NOTE | 2019-10-25 21:46 | PDOC ---
Exam Note: Saeed Note: Please also refer to the separate dictated note~for this date of service dictated separately.~Patient seen individually. Discussed the patient with Nursing staff reviewed the chart.~Reviewed interim history and current functioning. Reviewed vital signs,~Labs/ Radiology~and current medications noted below. Continue current treatment with the changes noted in the dictated addendum note Assessment: Vital Signs/I&O: Vital Signs Date Time Temp Pulse Resp B/P (MAP) Pulse Ox O2 Delivery O2 Flow Rate FiO2 10/25/19 16:37 98.1 88 16 110/75 (87) 97 10/21/19 19:21 Room Air I & O 10/24/19 10/24/19 10/25/19 15:00 23:00 07:00 Intake Total 1080 ml 700 ml Balance 1080 ml 700 ml Labs: Laboratory Tests Test 10/25/19 06:54 White Blood Count 7.9 x10^3/uL (4.0-11.0) Red Blood Count 4.53 x10^6/uL (3.50-5.40) Hemoglobin 14.2 g/dL (12.0-15.5) Hematocrit 42.9 % (36.0-47.0) Mean Corpuscular Volume 95 fL (79-100) Mean Corpuscular Hemoglobin 31 pg (25-35) Mean Corpuscular Hemoglobin Concent 33 g/dL (31-37) Red Cell Distribution Width 14.9 % (11.5-14.5) H Platelet Count 259 x10^3/uL (140-400) Neutrophils (%) (Auto) 59 % (31-73) Lymphocytes (%) (Auto) 27 % (24-48) Monocytes (%) (Auto) 12 % (0-9) H Eosinophils (%) (Auto) 1 % (0-3) Basophils (%) (Auto) 1 % (0-3) Neutrophils # (Auto) 4.7 x10^3uL (1.8-7.7) Lymphocytes # (Auto) 2.2 x10^3/uL (1.0-4.8) Monocytes # (Auto) 0.9 x10^3/uL (0.0-1.1) Eosinophils # (Auto) 0.1 x10^3/uL (0.0-0.7) Basophils # (Auto) 0.0 x10^3/uL (0.0-0.2) Sodium Level 142 mmol/L (136-145) Potassium Level 4.1 mmol/L (3.5-5.1) Chloride Level 107 mmol/L (98-107) Carbon Dioxide Level 27 mmol/L (21-32) Anion Gap 8 (6-14) Blood Urea Nitrogen 15 mg/dL (7-20) Creatinine 0.7 mg/dL (0.6-1.0) Estimated GFR (Cockcroft-Gault) 85.9 BUN/Creatinine Ratio 21 (6-20) H Glucose Level 94 mg/dL (70-99) Calcium Level 9.1 mg/dL (8.5-10.1) Total Bilirubin 0.1 mg/dL (0.2-1.0) L Aspartate Amino Transferase (AST) 14 U/L (15-37) L Alanine Aminotransferase (ALT) 16 U/L (14-59) Alkaline Phosphatase 89 U/L (46-116) Total Protein 7.6 g/dL (6.4-8.2) Albumin 3.0 g/dL (3.4-5.0) L Albumin/Globulin Ratio 0.7 (1.0-1.7) L Valproic Acid Level 63 mcg/mL (50-100) Valproic Acid Last Dose Date 10/24/19 Valproic Acid Last Dose Time 2100 Current Medications: I have reviewed the current psychotropics carefully including drug interactions. Risk benefit ratio favors no change other than as noted in my dictated progress note. 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
--- NOTE | 2019-10-25 22:00 | NUR ---
Patient is in the day room on assumption of care, watching television. She is calm, cooperative and compliant with assessments and medications taken whole. No agitation. Denies any pain or discomfort. Denies SI.
[2019-10-26 05:27] VITALS: BP 108/72
[2019-10-26] MEDS: POLYETHYLENE GLYCOL 3350 17 GM PACKET. PO SCH (08:02)
[2019-10-26] MEDS: MULTIVITAMIN with MINERAL TABLET. PO SCH (08:02)
[2019-10-26] MEDS: THIAMINE 100 MG TABLET. PO SCH (08:02)
[2019-10-26] MEDS: DIVALPROEX SODIUM 250 MG TABLET.DR. PO SCH ×3 (08:02→20:37)
[2019-10-26] MEDS: QUEtiapine 50 MG TABLET. PO SCH ×3 (08:03→20:37)
[2019-10-26] MEDS: SERTRALINE 100 MG TABLET. PO SCH (08:03)
[2019-10-26] MEDS: FOLIC ACID 1 MG TABLET PO SCH (08:03)
[2019-10-26] MEDS: amLODIPine BESYLATE 5 MG TABLET PO SCH (08:03)
[2019-10-26] MEDS: NYSTATIN TOPICAL POWDER 15GM BOTTLE. TP SCH ×2 (08:04→20:37)
[2019-10-26] MEDS: CHOLECALCIFEROL (VITAMIN D3) 50,000 UNIT CAPSULE PO SCH (12:14)
[2019-10-26] MEDS: QUEtiapine 25 MG TABLET. PO SCH (12:14)
[2019-10-26 15:47] VITALS: BP 116/76
--- NOTE | 2019-10-26 17:05 | NUR ---
Pt in dining room for morning meds and assessment. Calm and compliant, interactive with this nurse, disorganized.
[2019-10-26] MEDS: MELATONIN 3 MG TABLET PO SCH (20:37)
[2019-10-26] MEDS: traZODone 50 MG TABLET. PO SCH (20:38)
--- NOTE | 2019-10-26 21:32 | PDOC ---
Exam Note: Saeed Note: Please also refer to the separate dictated note~for this date of service dictated separately.~Patient seen individually. Discussed the patient with Nursing staff reviewed the chart.~Reviewed interim history and current functioning. Reviewed vital signs,~Labs/ Radiology~and current medications noted below. Continue current treatment with the changes noted in the dictated addendum note Assessment: Vital Signs/I&O: Vital Signs Date Time Temp Pulse Resp B/P (MAP) Pulse Ox O2 Delivery O2 Flow Rate FiO2 10/26/19 15:47 97.4 81 16 116/76 (89) 94 10/26/19 05:27 Room Air I & O 10/25/19 10/25/19 10/26/19 15:00 23:00 07:00 Intake Total 720 ml 480 ml 120 ml Balance 720 ml 480 ml 120 ml Current Medications: I have reviewed the current psychotropics carefully including drug interactions. Risk benefit ratio favors no change other than as noted in my dictated progress note. 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
[2019-10-27 06:00] VITALS: BP 93/64
[2019-10-27] MEDS: SERTRALINE 100 MG TABLET. PO SCH (09:00)
[2019-10-27] MEDS: NYSTATIN TOPICAL POWDER 15GM BOTTLE. TP SCH ×2 (09:00→19:49)
[2019-10-27] MEDS: FOLIC ACID 1 MG TABLET PO SCH (09:00)
[2019-10-27] MEDS: amLODIPine BESYLATE 5 MG TABLET PO SCH (09:00)
[2019-10-27] MEDS: POLYETHYLENE GLYCOL 3350 17 GM PACKET. PO SCH (09:00)
[2019-10-27] MEDS: DIVALPROEX SODIUM 250 MG TABLET.DR. PO SCH ×3 (09:00→19:49)
[2019-10-27] MEDS: THIAMINE 100 MG TABLET. PO SCH (09:00)
[2019-10-27] MEDS: QUEtiapine 50 MG TABLET. PO SCH ×3 (09:00→19:48)
[2019-10-27] MEDS: MULTIVITAMIN with MINERAL TABLET. PO SCH (09:00)
--- NOTE | 2019-10-27 09:04 | PN ---
DATE: 10/26/2019 PSYCHIATRIC PROGRESS NOTE This late entry 10/26/2019 covers elements not covered in my initial note. SUBJECTIVE: I met with the patient evening of 10/26/2019. The patient slept 6-1/2 hours previous night per JACKSON Ibrahim. She has been "snarky" per nursing report. Otherwise, remains confused, oblivious of her surroundings redirectable. REVIEW OF SYSTEMS: No CV, , pulmonary, eye, ENT system symptoms on review. Reliability poor. MENTAL STATUS EXAM: Oriented to herself. Insight, judgment, recent and remote memory, attention, concentration, fund of knowledge poor, consistent with her diagnosis mentioned in my initial note. PLAN: No change from initial note. MAN Riley CINTRON MD DR: JOIE/glenn JOB#: [id number] / [id number]
--- NOTE | 2019-10-27 11:05 | PN ---
DATE: 10/24/2019 PSYCHIATRIC PROGRESS NOTE This late entry 10/24/2019 covers elements not covered in my initial note. SUBJECTIVE: I met with the patient evening of 10/24/2019. Per JACKSON Chambers, the patient slept 7 hours previous night. She has been little bit calmer, remains very confused. REVIEW OF SYSTEMS: No CV, , pulmonary, eye system symptoms on review. Reliability poor. MENTAL STATUS EXAM: Oriented to herself. Insight, judgment, recent and remote memory, attention, concentration, fund of knowledge poor, consistent with her diagnosis mentioned in my initial note. PLAN: No change from initial note. MAN Riley CINTRON MD DR: JOIE/glenn JOB#: [id number] / [id number]
[2019-10-27] MEDS: QUEtiapine 25 MG TABLET. PO SCH (13:00)
--- NOTE | 2019-10-27 13:59 | NUR ---
Downtime medication administration forms utilized for am medication administration.
--- NOTE | 2019-10-27 14:00 | NUR ---
Pt is calm, cooperative, compliant. No agitation. No aggression. No hallucinations or delusions. Pt is compliant with her medications and assessment.
[2019-10-27 16:31] VITALS: BP 115/72
[2019-10-27] MEDS: traZODone 50 MG TABLET. PO SCH (19:48)
[2019-10-27] MEDS: MELATONIN 3 MG TABLET PO SCH (19:49)
--- NOTE | 2019-10-28 03:16 | NUR ---
Pt wandering in day room at . Took meds well. Ate several snacks. Went to bed after 1000. Resting quietly.
--- NOTE | 2019-10-28 05:08 | PN ---
DATE: 10/25/2019 PSYCHIATRIC PROGRESS NOTE This late entry 10/25/2019 covers elements not covered in my initial note. SUBJECTIVE: I met with the patient evening of 10/25/2019 and staffed at treatment team meeting with the entire team in the morning. The patient is sleeping average 7 hours. Pleasant. Appetite 75%, cooperative, totally confused, disorganized. REVIEW OF SYSTEMS: No CV, , PULMONARY, EYE system symptoms on review. Reliability poor. MENTAL STATUS EXAM: Oriented to herself. Insight, judgment, recent and remote memory, attention, concentration, fund of knowledge poor, consistent with her diagnosis mentioned in my initial note. PLAN: No change from initial note. ASHLIE CINTRON MD DR: JOIE/glenn JOB#: [id number] / [id number]
--- NOTE | 2019-10-28 05:17 | PN ---
DATE: 10/27/2019 SUBJECTIVE: The patient was seen today, met with the staff, chart reviewed, and also covering for Dr. Flores. Staff reports no major problems. The patient is scheduled for discharge in 3 days' time. The patient does not interact much. Slow to respond to questions. Denies of having any problems. OBSERVATION: VITAL SIGNS: Temperature 97.9, blood pressure 93/64, pulse 75, respirations 20, O2 sat 93%. Slept about 7 hours last night and her appetite is fair. The patient is not having any physical complaints at this time. LABORATORY DATA: The patient's lab reviewed. MEDICATIONS: The patient's current medications include Zoloft 100 mg daily, Seroquel 50 mg twice a day and also 37.5 mg at 1 p.m. The patient is also on trazodone 75 mg at night, Seroquel 50 mg at night, melatonin 3 mg at night, Depakote 250 mg t.i.d. p.o. The patient is not having any side effects. ASSESSMENT: Major neurocognitive disorder, most likely multifactorial and Alzheimer's; anxiety disorder, unspecified. PLAN: Continue with the current treatment plan. LENGTH OF STAY: 3 days. WANDER ORTIZ MD DR: DOMI/glenn JOB#: [id number] / [id number]
[2019-10-28 05:31] VITALS: BP 114/76
[2019-10-28] MEDS: FOLIC ACID 1 MG TABLET PO SCH (09:16)
[2019-10-28] MEDS: amLODIPine BESYLATE 5 MG TABLET PO SCH (09:16)
[2019-10-28] MEDS: NYSTATIN TOPICAL POWDER 15GM BOTTLE. TP SCH ×2 (09:16→19:35)
[2019-10-28] MEDS: THIAMINE 100 MG TABLET. PO SCH (09:16)
[2019-10-28] MEDS: SERTRALINE 100 MG TABLET. PO SCH (09:16)
[2019-10-28] MEDS: POLYETHYLENE GLYCOL 3350 17 GM PACKET. PO SCH (09:16)
[2019-10-28] MEDS: QUEtiapine 50 MG TABLET. PO SCH ×3 (09:16→19:34)
[2019-10-28] MEDS: DIVALPROEX SODIUM 250 MG TABLET.DR. PO SCH ×3 (09:16→19:35)
[2019-10-28] MEDS: MULTIVITAMIN with MINERAL TABLET. PO SCH (09:16)
--- NOTE | 2019-10-28 10:42 | NUR ---
Pt is calm, cooperative, compliant. Pt is compliant with her medications and assessment. No agitation. No aggression. No hallucinations or delusions.
[2019-10-28] MEDS: QUEtiapine 25 MG TABLET. PO SCH (12:14)
[2019-10-28 15:41] VITALS: BP 117/72
--- NOTE | 2019-10-28 17:27 | NUR ---
Pt has refused to allow nurse to scan armband thought the day.
[2019-10-28] MEDS: traZODone 50 MG TABLET. PO SCH (19:34)
[2019-10-28] MEDS: MELATONIN 3 MG TABLET PO SCH (19:34)
--- NOTE | 2019-10-28 22:00 | NUR ---
Patient is in her room on assumption of care. She is calm, cooperative and compliant with assessments and medications taken whole. No agitation. Denies any pain or discomfort. Denies SI.
--- NOTE | 2019-10-29 04:18 | PN ---
DATE: 10/28/2019 SUBJECTIVE: The patient was seen today, met with the staff, chart reviewed, and also covering for Dr. Flores. Staff reports continued problems, but improved. She has been cooperative with care and also compliant with the treatment, not shown any extreme mood swings. The patient is not exhibiting any side effects to medications. The patient has no major physical complaints. OBSERVATION: VITAL SIGNS: Temperature 97.7, blood pressure 114/76, pulse 64, respirations 16, O2 sat 94%. GENERAL: Slept about 7 hours last night. LABORATORY DATA: The patient's lab is reviewed. CURRENT MEDICATIONS: Include Zoloft 100 mg daily, Seroquel 50 mg b.i.d., repeat 37.5 mg at 1 p.m. The patient is also on trazodone 75 mg at night and also Seroquel 50 mg at night, melatonin 3 mg at night, and Depakote 250 mg t.i.d. p.o. ASSESSMENT: 1. Major neurocognitive disorder, most likely multifactorial and Alzheimer's. 2. Generalized anxiety disorder, unspecified. PLAN: Continue with the current treatment plan. LENGTH OF STAY: 3 days. The patient is scheduled for discharge on 10/30/2019. WANDER ORTIZ MD DR: DOMI/glenn JOB#: [id number] / [id number]
[2019-10-29 06:01] VITALS: BP 108/73
[2019-10-29] MEDS: POLYETHYLENE GLYCOL 3350 17 GM PACKET. PO SCH (09:21)
[2019-10-29] MEDS: FOLIC ACID 1 MG TABLET PO SCH (09:21)
[2019-10-29] MEDS: DIVALPROEX SODIUM 250 MG TABLET.DR. PO SCH ×3 (09:21→20:30)
[2019-10-29] MEDS: NYSTATIN TOPICAL POWDER 15GM BOTTLE. TP SCH ×2 (09:22→20:29)
[2019-10-29] MEDS: MULTIVITAMIN with MINERAL TABLET. PO SCH (09:22)
[2019-10-29] MEDS: SERTRALINE 100 MG TABLET. PO SCH (09:22)
[2019-10-29] MEDS: amLODIPine BESYLATE 5 MG TABLET PO SCH (09:22)
[2019-10-29] MEDS: THIAMINE 100 MG TABLET. PO SCH (09:22)
[2019-10-29] MEDS: QUEtiapine 50 MG TABLET. PO SCH ×3 (09:22→20:31)
--- NOTE | 2019-10-29 11:10 | NUR ---
No agitation. No aggression. No hallucinations or delusions. Pt is calm, cooperative, compliant. Pt is compliant with her medications and assessment.
[2019-10-29] MEDS: QUEtiapine 25 MG TABLET. PO SCH (12:40)
[2019-10-29 16:39] VITALS: BP 113/66
--- NOTE | 2019-10-29 16:49 | NUR ---
[facility] Social Work Discharge Planning Form Patient Name CINDA WALDEN Admit Date: 10/08/2019 DISCHARGE PLAN Discharge Destination: [facility] Care Assessment: N/A Level II Assessment: N/A Transportation: Facility to pick pt up between Special Instructions/Notes: Please fax discharge orders and discharge medications to the fax number below. DISCHARGE TO FACILITY Facility: [facility] in [place] Address: [address] [place] [address]; [place] [address] Contact Name: Juliana Werner, DON: Contact Name: Please call and ask for nurse caring for pt upon admission. PCP: Dr. Cassidy
[2019-10-29] MEDS: MELATONIN 3 MG TABLET PO SCH (20:30)
[2019-10-29] MEDS: traZODone 50 MG TABLET. PO SCH (20:30)
--- NOTE | 2019-10-29 21:55 | PDOC ---
Exam Note: Saeed Note: Please also refer to the separate dictated note~for this date of service dictated separately.~Patient seen individually. Discussed the patient with Nursing staff reviewed the chart.~Reviewed interim history and current functioning. Reviewed vital signs,~Labs/ Radiology~and current medications noted below. Continue current treatment with the changes noted in the dictated addendum note Assessment: Vital Signs/I&O: Vital Signs Date Time Temp Pulse Resp B/P (MAP) Pulse Ox O2 Delivery O2 Flow Rate FiO2 10/29/19 16:39 56 18 113/66 (82) 98 10/29/19 06:01 97.3 10/28/19 05:31 Room Air I & O 10/28/19 10/28/19 10/29/19 15:00 23:00 07:00 Intake Total 360 ml 240 ml 120 ml Balance 360 ml 240 ml 120 ml Current Medications: I have reviewed the current psychotropics carefully including drug interactions. Risk benefit ratio favors no change other than as noted in my dictated progress note. 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
--- NOTE | 2019-10-29 22:32 | NUR ---
Patient is in the day room on assumption of care. She is calm, cooperative and compliant with assessments and medications taken whole. No agitation. Denies any pain or discomfort. Denies SI.
[2019-10-29] MEDS ORDERED: QUET50TA PO (23:41)
[2019-10-29] MEDS ORDERED: METH28OI2 TP (23:45)
[2019-10-29] MEDS ORDERED: SERT100T PO (23:46)
[2019-10-29] MEDS ORDERED: TRAZ-120 PO ×2 (23:48→23:49)
[2019-10-29] MEDS ORDERED: OLAN5TAB5 PO (23:50)
[2019-10-29] MEDS ORDERED: MAG30ORA2 PO (23:51)
[2019-10-29] MEDS ORDERED: MAGN400O7 PO (23:51)
[2019-10-29] MEDS ORDERED: NYST60PO TP (23:53)
[2019-10-29] MEDS ORDERED: CHOL500021 PO (23:54)
[2019-10-30 05:56] VITALS: BP 134/68
--- NOTE | 2019-10-30 10:19 | NUR ---
Patient refused to eat Pureed diet that was brought to her at breakfast. Patient returned to bed after breakfast and is currently sleeping Addendum: 10/30/19 at 1021 by THIERRY BEGUM RN wrong patient
--- NOTE | 2019-10-30 10:43 | NUR ---
Patient did not get up and eat this morning. It is not unusual for this patient to skip breakfast. Patient is still asleep in bed, nurse will give morning medications when she gets up. Patient is scheduled to discharge this afternoon.
[2019-10-30] MEDS: POLYETHYLENE GLYCOL 3350 17 GM PACKET. PO SCH (11:27)
[2019-10-30 11:28] VITALS: BP 134/68
[2019-10-30] MEDS: THIAMINE 100 MG TABLET. PO SCH (11:28)
[2019-10-30] MEDS: FOLIC ACID 1 MG TABLET PO SCH (11:28)
[2019-10-30] MEDS: MULTIVITAMIN with MINERAL TABLET. PO SCH (11:28)
[2019-10-30] MEDS: amLODIPine BESYLATE 5 MG TABLET PO SCH (11:28)
[2019-10-30] MEDS: NYSTATIN TOPICAL POWDER 15GM BOTTLE. TP SCH (11:29)
[2019-10-30] MEDS: QUEtiapine 50 MG TABLET. PO SCH (11:29)
[2019-10-30] MEDS: SERTRALINE 100 MG TABLET. PO SCH (11:29)
[2019-10-30] MEDS: DIVALPROEX SODIUM 250 MG TABLET.DR. PO SCH (11:29)
[2019-10-30] MEDS: QUEtiapine 25 MG TABLET. PO SCH (12:21)
--- NOTE | 2019-10-30 12:22 | NUR ---
Held 1300 seroquel and 1400 divalproex medications as patient had just taken morning medications at 1130.
--- NOTE | 2019-10-30 12:47 | NUR ---
Patient got up to eat lunch. She ate 25% and then stated it was "gross" and didn't eat anymore. Patient currently walking in hallway. No adverse behaviors noted this shift. Patient was compliant with her medications taken whole with water.
--- NOTE | 2019-10-30 13:26 | NUR ---
Tobacco Discharge Note [facility] Patient has late stage Dementia and is oriented only to self. Tobacco Hotline called with patient prior to discharge, YES Tobacco cessation medication listed with current medications for discharge. YES Transition Record was faxed to follow-up provider with the following elements: Reason for admission, procedures, tests, principal diagnosis, pending studies, patient instructions, 07/03 contact information for unit, phone number to obtain pending test results, plan for follow-up care, physician follow-up, advanced directive information, and medication list with dose, duration and instructions. This information was included in the following documents: History and physical, lab results, study results, progress notes, social work planning form, DC instruction form, patient visit summary, and medication reconciliation form. Date & time record faxed: 10/30/19 1300 Record faxed to: [facility] Record discussed with/ report given to: JACKSON Vizcarra at [facility]
--- NOTE | 2019-10-30 21:35 | PDOC ---
Exam Note: Saeed Note: Please also refer to the separate dictated note~for this date of service dictated separately.~Patient seen individually. Discussed the patient with Nursing staff reviewed the chart.~Reviewed interim history and current functioning. Reviewed vital signs,~Labs/ Radiology~and current medications noted below. Continue current treatment with the changes noted in the dictated addendum note Assessment: Vital Signs/I&O: Vital Signs Date Time Temp Pulse Resp B/P (MAP) Pulse Ox O2 Delivery O2 Flow Rate FiO2 10/30/19 11:28 73 134/68 10/30/19 05:56 98.2 14 95 Room Air I & O 10/29/19 10/29/19 10/30/19 15:00 23:00 07:00 Intake Total 240 ml 480 ml Balance 240 ml 480 ml Current Medications: I have reviewed the current psychotropics carefully including drug interactions. Risk benefit ratio favors no change other than as noted in my dictated progress note. 

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
--- NOTE | 2019-10-31 09:45 | PN ---
DATE: 10/29/2019 PSYCHIATRIC PROGRESS NOTE This late entry 10/29/2019 covers the elements not covered in my initial note. SUBJECTIVE: I met with the patient evening of 10/29/2019. Per nursing report, the patient remains confused, wanders the hallways, not aggressive, less paranoid. REVIEW OF SYSTEMS: No CV, , pulmonary, eye, ENT system symptoms on review. Reliability poor. MENTAL STATUS EXAM: Oriented to herself. Insight, judgment, recent and remote memory, attention, concentration, fund of knowledge poor, consistent with her diagnosis mentioned in my initial note. PLAN: No change from initial note. Possible discharge to nursing facility 10/30/2019. ASHLIE CINTRON MD DR: JOIE/glenn JOB#: [id number] / [id number]
--- NOTE | 2019-11-02 21:21 | NUR ---
IP: Notified Zbigniew Zhu at [facility] regarding possible exposure to COVID-19. Discussed recommendations for 2 week quarantine, monitoring of temperature BID, respiraatory symptoms, and to follow up with local Health department.
--- NOTE | 2019-11-03 10:43 | NUR ---
[facility] attempted to contact Lakesha Angelo for pt to request that she contact [facility] or the Director of the Program on Tuesday. This is the first attempt to inform lakesha of our policy for the COVOID-19 case for the unit. [facility] will also plan to send this in an email and encouraged her to call the unit with any questions or concerns.
== END 2019-10-30 13:36 | DRG 57 ==
LOC: ER 13:43 → GEROPSY 16:15
PROVIDERS: ADMIT Psychiatry & Neurology Psychiatry; ATTEND Psychiatry & Neurology Psychiatry
DX: G30.9 Alzheimer's disease, unspecified (principal); F01.51 Vascular dementia, unspecified severity, with behavioral disturbance; F02.81 Dementia in other diseases classified elsewhere, unspecified severity, with behavioral disturbance; F14.10 Cocaine abuse, uncomplicated; I10 Essential (primary) hypertension; E11.9 Type 2 diabetes mellitus without complications; F17.210 Nicotine dependence, cigarettes, uncomplicated; J44.9 Chronic obstructive pulmonary disease, unspecified; F32.9 Major depressive disorder, single episode, unspecified; F41.1 Generalized anxiety disorder; F63.9 Impulse disorder, unspecified; Z79.899 Other long term (current) drug therapy; Z91.19 Patient's noncompliance with other medical treatment and regimen; Z88.0 Allergy status to penicillin; Z88.2 Allergy status to sulfonamides
CPT/HCPCS: 36415; 80053; 80061; 80164; 80307; 81001; 82306; 82607; 82947; 83036; 83540; 83550; 83735; 84436; 84443; 84480; 85025; 86592; 99407; G0480; 99285-25